=== PATIENT | male | born 1995 | race Two or more races ===

== ENCOUNTER 2022-02-09 00:52 | Inpatient (IN) | payer OTHER, SELFPAY ==
--- NOTE | 2022-02-09 00:59 | ED.PSYCH ---
HPI - Psych General Chief Complaint: Psychiatric Symptoms Stated Complaint: crisis Time Seen by Provider: 02/09/22 00:59 Source: patient Mode of arrival: EMS Limitations: no limitations History of Present Illness HPI Narrative: Patient came by ambulance sent by [facility] on [address] for disorganized thought process and visual hallucination patient is common quite denies any suicidal ideation no substance abuse Related Data Allergies Allergy/AdvReac Type Severity Reaction Status Date / Time No Known Allergies Allergy Verified 02/09/22 01:08 Review of Systems Review of Systems: Yes all other systems are reviewed and are negative [facility] Social History Social History Advance Directives: No Advance Directives Information Provided: No Physical Exam Vital Signs: Vital Signs: Last Vital Signs Temp 98.1 F 02/09/22 01:01 Pulse 51 02/09/22 01:01 Resp 18 02/09/22 01:01 BP 129/92 H 02/09/22 01:01 Pulse Ox 98 02/09/22 01:01 O2 Del Method 02/09/22 01:01 BMI result Body Mass Index 18.6 Appearance: Alert. Oriented X3. No acute distress. Calm and cooperative Eyes: PERRLA, No Nystagmus ENT: Pharynx normal. Oral Mucosa moist Neck: Normal inspection. Neck supple. CVS: Normal heart rate and rhythm. Pulses normal. Respiratory: No respiratory distress. Equal air entry bilateral, no wheezing/rales/rhonchi Abdomen: Soft and nontender. Bowel sounds are present, no mass palpable, no CVA tenderness Skin: Skin warm and dry. Normal skin color. Normal skin turgor. Extremities: No lower extremity edema. No calf tenderness psych: Calm cooperative denies any delusions hallucinations no suicidal ideation Neuro: Oriented X 3. No motor deficit. No sensory deficit.No cerebellar signs , cranial nerves II-XII intact MDM - Psych MDM Narrative Medical decision making narrative: Patient with disorganized thoughts possible schizoaffective disorder planned to get admitted for further evaluation treatment Differential Diagnosis Differential diagnosis: Likely schizoaffective disorder Lab Data Attestation: I reviewed the patient's lab results. Result diagrams: 02/09/22 01:39 02/09/22 01:39 Labs: Lab Results 02/09/22 02/09/22 02/09/22 Range/Units 01:14 01:14 01:39 WBC 6.3 (4.8-10.8) X10*3/uL RBC 5.31 (4.60-5.80) X10*6/uL Hgb 15.7 (14.0-18.0) g/dl Hct 47.1 (42.0-52.0) % MCV 88.7 (80.0-98.0) fL MCH 29.6 (27.0-33.0) pg MCHC 33.3 (31.0-36.0) g/dl RDW 12.5 (11.0-16.0) % Plt Count 211 (160-400) X10*3/uL MPV 10.7 (9.4-12.4) fL Immature Gran % (Auto) 0.2 (0.0-0.4) % Neut % (Auto) 51.6 (45-73) % Lymph % (Auto) 33.0 (20-40) % [place] % (Auto) 9.9 (2-11) % Eos % (Auto) 5.0 H (0-4) % Baso % (Auto) 0.3 (0-2) % Lymph # (Auto) 2.1 (1.2-4.9) X10*3/uL [place] # (Auto) 0.6 (0.1-1.2) X10*3/uL Eos # (Auto) 0.3 (0.0-0.4) X10*3/uL Baso # (Auto) 0.0 (0.0-0.2) X10*3/uL Abs Immat Gran (auto) 0.01 (0.00-0.03) X10*3/uL Absolute Neuts (auto) 3.2 (2.0-8.3) x10*3/uL Absolute Nucleated RBC 0.000 (0.0-0.012) X10*3/uL Nucleated RBC % (auto) 0.0 (0.0-0.2) /100WBC Sodium (135-145) mmol/L Potassium (3.3-5.1) mmol/L Chloride (96-108) mmol/L Carbon Dioxide (22-29) mmol/L Anion Gap (12-20) BUN (9-16) mg/dL Creatinine (0.5-1.4) mg/dL Estim Creat Clear Calc Estimated GFR Random Glucose (60-115) mg/dL Calcium (8.4-10.2) mg/dL Salicylates (15-30) mg/dL Urine Opiates Screen Not Detected (Not Detect) Urine Fentanyl Screen Not Detected (Not Detect) Acetaminophen (<30) mcg/mL Ur Barbiturates Screen Not Detected (Not Detect) Ur Phencyclidine Scrn Not Detected (Not Detect) Ur Amphetamines Screen Not Detected (Not Detect) U Benzodiazepines Scrn Not Detected (Not Detect) Urine Cocaine Screen Not Detected (Not Detect) U Marijuana (THC) Screen POSITIVE H (Not Detect) Ethyl Alcohol mg/dL COVID-19 (JOHNNY) Negative (Negative) COVID-19 Clin Com See Note 02/09/22 02/09/22 Range/Units 01:39 01:39 WBC (4.8-10.8) X10*3/uL RBC (4.60-5.80) X10*6/uL Hgb (14.0-18.0) g/dl Hct (42.0-52.0) % MCV (80.0-98.0) fL MCH (27.0-33.0) pg MCHC (31.0-36.0) g/dl RDW (11.0-16.0) % Plt Count (160-400) X10*3/uL MPV (9.4-12.4) fL Immature Gran % (Auto) (0.0-0.4) % Neut % (Auto) (45-73) % Lymph % (Auto) (20-40) % [place] % (Auto) (2-11) % Eos % (Auto) (0-4) % Baso % (Auto) (0-2) % Lymph # (Auto) (1.2-4.9) X10*3/uL [place] # (Auto) (0.1-1.2) X10*3/uL Eos # (Auto) (0.0-0.4) X10*3/uL Baso # (Auto) (0.0-0.2) X10*3/uL Abs Immat Gran (auto) (0.00-0.03) X10*3/uL Absolute Neuts (auto) (2.0-8.3) x10*3/uL Absolute Nucleated RBC (0.0-0.012) X10*3/uL Nucleated RBC % (auto) (0.0-0.2) /100WBC Sodium 141 (135-145) mmol/L Potassium 4.0 (3.3-5.1) mmol/L Chloride 102 (96-108) mmol/L Carbon Dioxide 29 (22-29) mmol/L Anion Gap 14 (12-20) BUN 29 H (9-16) mg/dL Creatinine 1.15 (0.5-1.4) mg/dL Estim Creat Clear Calc 79.3 Estimated GFR > 60 Random Glucose 96 (60-115) mg/dL Calcium 9.6 (8.4-10.2) mg/dL Salicylates < 5.0 L (15-30) mg/dL Urine Opiates Screen (Not Detect) Urine Fentanyl Screen (Not Detect) Acetaminophen < 1 (<30) mcg/mL Ur Barbiturates Screen (Not Detect) Ur Phencyclidine Scrn (Not Detect) Ur Amphetamines Screen (Not Detect) U Benzodiazepines Scrn (Not Detect) Urine Cocaine Screen (Not Detect) U Marijuana (THC) Screen (Not Detect) Ethyl Alcohol < 10 mg/dL COVID-19 (JOHNNY) (Negative) COVID-19 Clin Com Discharge Plan Discharge Clinical Impression: Acute psychosis, Acute anxiety Patient Disposition: Still a Patient
[2022-02-09 01:01] VITALS: BP 129/92; PULSE 51; RESP 18; TEMP 36.7; O2SAT 98; BMI 18.6
[2022-02-09] MEDS: LORazepam 1 MG TABLET 2 MG PO (01:36)
[2022-02-09 01:39] LABS: COVID-19 Test Negative (Negative); IDNOW Serial# 9DB6401D
[2022-02-09 01:41] LABS: Amphetamine Screen Urine Not Detected (Not Detect); Barbiturates, Urine Not Detected (Not Detect); Benzodiazepines Screen Urine Not Detected (Not Detect); Cannabinoid Screen Urine POSITIVE (Not Detect); Cocaine Screen Urine Not Detected (Not Detect); Fentanyl, urine Not Detected (Not Detect); Opiate Screen Urine Not Detected (Not Detect); Phencyclidine Screen Urine Not Detected (Not Detect)
[2022-02-09 01:43] LABS: MANUAL DIFF FLAG NO
[2022-02-09 01:50] LABS: Basophils Percent Auto 0.3 % (0-2); Eosinophils Absolute Auto 0.3 X10*3/uL (0.0-0.4); Hematocrit 47.1 % (42.0-52.0); Hemoglobin 15.7 g/dl (14.0-18.0); Imm Gran Abs Auto 0.01 X10*3/uL (0.00-0.03); Imm Gran Pct Auto 0.2 % (0.0-0.4); Lymphocytes Absolute Auto 2.1 X10*3/uL (1.2-4.9); Mean Corpuscular HGB Conc 33.3 g/dl (31.0-36.0); Mean Corpuscular Hemoglobin 29.6 pg (27.0-33.0); Mean Corpuscular Volume 88.7 fL (80.0-98.0); Mean Platelet Volume 10.7 fL (9.4-12.4); Monocytes Absolute Auto 0.6 X10*3/uL (0.1-1.2); Monocytes Percent Auto 9.9 % (2-11); Neutrophils Absolute Auto 3.2 x10*3/uL (2.0-8.3); Neutrophils Percent Auto 51.6 % (45-73); Platelet Count 211 X10*3/uL (160-400); Red Blood Count 5.31 X10*6/uL (4.60-5.80); Red Cell Distribution Width 12.5 % (11.0-16.0); White Blood Count 6.3 X10*3/uL (4.8-10.8)
[2022-02-09 02:00] LABS: Ethanol < 10 mg/dL
[2022-02-09 02:04] LABS: Acetaminophen LAB < 1 mcg/mL (<30); Anion Gap 14 (12-20); Blood Urea Nitrogen 29 mg/dL (9-16); Calcium 9.6 mg/dL (8.4-10.2); Carbon Dioxide 29 mmol/L (22-29); Chloride 102 mmol/L (96-108); Creatinine Clr Calc Pharmacy 79.3; Estimated Glomerular Filt Rate > 60; Glucose Random 96 mg/dL (60-115); Salicylate < 5.0 mg/dL (15-30); Sodium 141 mmol/L (135-145)
--- NOTE | 2022-02-09 06:35 | PC.NURSE ---
Patient slept through the night, no distress observed/reported, administered Ativan 2 mg PO at 0136 as ordered with + effect, disposition per [facility] is section 12 inpatient bed search, patient is currently not on any medication at this time, behavior suitable and non concerning, will continue to monitor.
[2022-02-09 08:02] VITALS: BP 113/54; PULSE 53; RESP 20; TEMP 36.3; O2SAT 98
--- NOTE | 2022-02-09 14:54 | PC.NURSE ---
PT CALM AND COOPERATIVE THROUGHOUT DAY.
[2022-02-09 17:33] VITALS: BP 130/85; PULSE 64; TEMP 36.2; O2SAT 99
--- NOTE | 2022-02-09 18:00 | PC.NURSE ---
pt resting in bed at start of shift @1500, pt given tyrel sean, pt asked to use a puzzle in the activity room. calm and cooperative. no behaviors noted on this RNs time.
[2022-02-09 18:30] VITALS: BP 135/94; PULSE 65; RESP 17; TEMP 36.9; O2SAT 100
--- NOTE | 2022-02-09 19:13 | PC.ADMIT ---
Patient arrived at at 1825 with a legal status of CV. Patient was pleasant and cooperative with the admission assessment. Patient presents with disorganized thinking. When asked if he could tell TW about what brought him in, the patient stated ?I think differently than most people. I have what some people may view as crazy thinking. For example you and I are both in this room and I see 3 stools and 2 chairs but that may not be what you see?. When asked if he could elaborate further, the patient did not respond and began to stare at the ground for some time. Throughout the interview eye contact is poor. Speech is within normal limits. Patient asked What are some goals for discharge, the patient stated ? I want to get my focus refocused. I want to have clear thinking but not robot thinking. I want to get my mind right for what's normal for me . At times seems religiously preoccupied and making references to ?the god above me?. ?Only god above all else I should be doing better?. Patient reports that he is currently homeless. Reported that he has lost more than 40 pounds ?because of a lot of things including my financial situation?. Reported sleep has been poor ?it has been a doozy of a wekke let me tell you?. Patient is currently denying SI/HI/AH/VH. Patient asked if he was currently experiencing any anxiety or depression. The patient replied ?what is depression, sure I should be doing better but the god above should have me on better actions?. Patient denies physical complaints at this time. 15 minute safety checks initiated.
--- NOTE | 2022-02-09 20:48 | ECG_ITS ---
Test Reason : MED CLEARANCE Blood Pressure : / mmHG Vent. Rate : 060 BPM Atrial Rate : 060 BPM P-R Int : 110 ms QRS Dur : 096 ms QT Int : 424 ms P-R-T Axes : 072 076 046 degrees QTc Int : 424 ms Sinus rhythm with short NV Otherwise normal ECG No previous ECGs available Referred By: Trina Hinton Electronically Signed By:ANNAMARIE HOBBS
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
[2022-02-10 08:30] VITALS: BP 119/81; PULSE 59; RESP 16; TEMP 36.8; O2SAT 100
[2022-02-10 09:11] LABS: Estimated Average Glucose 103 mg/dL; Hemoglobin A1c % 5.2 %
[2022-02-10 09:24] LABS: Cholesterol 147 mg/dL; HDL Cholesterol 41 mg/dL; LDL Cholesterol Calculated 99 mg/dl; Triglycerides 36 mg/dL
[2022-02-10 09:44] LABS: Free T4 (Free Thyroxine) 1.06 ng/dL (0.71-1.85); Thyroid Stimulating Hormone 1.25 uIU/mL (0.32-4.0)
[2022-02-10 10:54] LABS: Folate 10.5 ng/mL (> or = 4.0); Vitamin B12 364 pg/mL (200-900)
[2022-02-10 14:09] VITALS: BMI 18.6
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
[2022-02-10 20:19] VITALS: BP 135/71; PULSE 75; RESP 18; TEMP 36.7; O2SAT 99
[2022-02-10] MEDS: OLANZapine 10 MG TABLET PO (21:25)
[2022-02-11 08:24] VITALS: BP 126/74; PULSE 80; RESP 16; TEMP 37.1; O2SAT 99
--- NOTE | 2022-02-11 14:00 | P.PNPSI_ITS ---
Subjective Subjective Date of Service: 02/11/22 Reason For Visit: disorganized thoughs, VH Interim History: calm, cooperative. expresses frustration with particular peer whom he feels desecrated the sacred space of meditation. seems a bit paranoid and a little disorganized, distrustful of staff as well as peers. he has no complaints about the medication, denies it makes him feel like a zombie, but rather states he slept extremely well last night after having taken the medication. per staff, apprehensive, tearful. racing thoughts, homeless. guarded. slept well. appeared to be RIS at times, but denied. Mental Status Exam Mental Status Exam Narrative: A&O. In street clothes, adequate grooming. Good eye contact, attentive. No Tics or Tremors. No abnormal involuntary movements. Calm, guarded. Non-pressured speech, quiet, talkative. No prolonged speech latency or dysarthria. affect is constricted with some lability - tearfulness. no SI/HI/AVH expressed. Thoughts are loose. No known cognitive or memory impairment. Insight/ Judgment poor. Diagnostics Vital Signs (24Hr): Vital Signs - 24 hr 02/10/22 20:19 02/11/22 08:24 Temperature 98.1 F 98.7 F Pulse Rate 75 80 Respiratory Rate 18 16 Blood Pressure 135/71 126/74 Pulse Oximetry 99 99 Oxygen Delivery Method Room Air BMI result Body Mass Index 18.6 Labs Results: 02/09/22 01:39 02/09/22 01:39 Labs: Laboratory Results - last 48 hr 02/10/22 02/10/22 02/10/22 08:16 08:16 08:16 Estimat Average Glucose 103 Hemoglobin A1c % 5.2 Magnesium 2.0 Triglycerides 36 Cholesterol 147 LDL Cholesterol, Calc 99 HDL Cholesterol 41 Vitamin B12 364 Folate 10.5 TSH 1.25 Free T4 1.06 Medications Medications Current Medications Acetaminophen (Acetaminophen 325 Mg Tablet) 650 mg PO Q6H PRN PRN Reason: Headache/Pain Mild Scale (1-3) Al Hydroxide/Mg Hydroxide (Magnesium Hydrox/Alum Hydrox 30 Ml Oral.Susp) 30 ml PO Q6H PRN PRN Reason: Heartburn/Nausea Hydroxyzine HCl (Hydroxyzine Hcl 25 Mg Tablet) 25 mg PO Q6H PRN PRN Reason: Anxiety Magnesium Hydroxide (Milk Of Magnesia 30 Ml Oral.Susp) 30 ml PO DAILY PRN PRN Reason: Constipation Melatonin (Melatonin 3 Mg Tablet) 3 mg PO BEDTIME PRN PRN Reason: insomnia Olanzapine (Olanzapine 10 Mg Tablet) 10 mg PO BEDTIME [facility] Last Admin: 02/10/22 21:25 Dose: 10 mg Trazodone HCl (Trazodone Hcl 50 Mg Tablet) 50 mg PO BEDTIME PRN PRN Reason: Insomnia Allergies Allergies Allergy/AdvReac Type Severity Reaction Status Date / Time No Known Allergies Allergy Verified 02/09/22 01:08 Assessment & Plan Assessment & Plan (1) Unspecified psychosis: Status: Acute Code(s): F29 - Unspecified psychosis not due to a substance or known physiological condition Plan Brian is a 26 y.o. Male who carries a dx of unspecified psychotic disorder. He self presented to [facility] on [address] with his cousin due to increased anxiety and depression, bizarre behaviors, paranoia. Pt has been endorsing paranoid and lutheran delusions. No past psych hx as an adult, remote hx of treatment for ADHD in childhood. Substance use positive for cannabis only, denies alcohol abuse. Family hx of schizophrenia. Plan: 02/09: Pt says ?I dont believe? in meds, I dont like to use pills.? Asks for chamomile tea, also accepting of PRN Melatonin. Consider head CT, as pt has un known psych hx and is presenting with psychotic sx, denies any hx of trauma to his head. 02/10: discloses paranoid delusions. agrees to zyprexa at . reports polytrauma of the head. 02/11: paranoid. slept very well after zyprexa 10 last night, no complaints. continue current mgmt. I spent ___25___ minutes with the patient and/or on the patient floor today, greater than?50% of which was spent counseling/coordinating care. Reason for contiued inpatient stay Substantial Risk for: inability to function and rapid decompensation
[2022-02-11 21:01] VITALS: BP 117/76; PULSE 76; RESP 16; TEMP 36.6; O2SAT 98
[2022-02-11] MEDS: OLANZapine 10 MG TABLET PO (22:31)
[2022-02-12 06:00] VITALS: BP 127/72; PULSE 79; RESP 18; TEMP 36.7; O2SAT 100
[2022-02-12 07:00] VITALS: BMI 20.2
--- NOTE | 2022-02-12 16:32 | HO.PSYCHPN ---
Subjective Subjective Date of Service: 02/12/22 Reason For Visit: disorganized thoughs, VH Interim History: calm, cooperative. reports he is sleeping well and ate very well today. remains delusional, but perhaps less so than previously. states he is struggling with his emotions and having a hard time using coping mechanisms. reports he is feeling more safe since starting zyprexa. declines to increase zyprexa dose right now. AH have decreased. c/o constipation, metamucil started. per staff, no issues. c/o constipation. +AH, delusional. too afraid to eat. slept well. Mental Status Exam Mental Status Exam Narrative: A&O. In street clothes, adequate grooming. Good eye contact, attentive. No Tics or Tremors. No abnormal involuntary movements. Calm, less guarded. Non-pressured speech, quiet, talkative. No prolonged speech latency or dysarthria. affect is more flexible and non-labile. no SI/HI/VH expressed. reports AH, but improved from prior. Thoughts are more organized and linear. No known cognitive or memory impairment. Insight/ Judgment poor. Diagnostics Vital Signs (24Hr): Vital Signs - 24 hr 02/11/22 21:01 02/12/22 06:00 Temperature 97.8 F 98.1 F Pulse Rate 76 79 Respiratory Rate 16 18 Blood Pressure 117/76 127/72 Pulse Oximetry 98 100 Oxygen Delivery Method Room Air Room Air BMI result Body Mass Index 20.2 Labs Results: 02/09/22 01:39 02/09/22 01:39 Medications Medications Current Medications Acetaminophen (Acetaminophen 325 Mg Tablet) 650 mg PO Q6H PRN PRN Reason: Headache/Pain Mild Scale (1-3) Al Hydroxide/Mg Hydroxide (Magnesium Hydrox/Alum Hydrox 30 Ml Oral.Susp) 30 ml PO Q6H PRN PRN Reason: Heartburn/Nausea Hydroxyzine HCl (Hydroxyzine Hcl 25 Mg Tablet) 25 mg PO Q6H PRN PRN Reason: Anxiety Magnesium Hydroxide (Milk Of Magnesia 30 Ml Oral.Susp) 30 ml PO DAILY PRN PRN Reason: Constipation Melatonin (Melatonin 3 Mg Tablet) 3 mg PO BEDTIME PRN PRN Reason: insomnia Olanzapine (Olanzapine 10 Mg Tablet) 10 mg PO BEDTIME [facility] Last Admin: 02/11/22 22:31 Dose: 10 mg Psyllium Hydrophilic Mucilloid (Psyllium Seed 3.4 Gm Powd.Pack) 3.4 gm PO DAILY [facility] Last Admin: 02/12/22 13:41 Dose: 3.4 gm Trazodone HCl (Trazodone Hcl 50 Mg Tablet) 50 mg PO BEDTIME PRN PRN Reason: Insomnia Allergies Allergies Allergy/AdvReac Type Severity Reaction Status Date / Time No Known Allergies Allergy Verified 02/09/22 01:08 Assessment & Plan Assessment & Plan (1) Unspecified psychosis: Status: Acute Code(s): F29 - Unspecified psychosis not due to a substance or known physiological condition Plan Brian is a 26 y.o. Male who carries a dx of unspecified psychotic disorder. He self presented to [facility] on [address] with his cousin due to increased anxiety and depression, bizarre behaviors, paranoia. Pt has been endorsing paranoid and episcopal delusions. No past psych hx as an adult, remote hx of treatment for ADHD in childhood. Substance use positive for cannabis only, denies alcohol abuse. Family hx of schizophrenia. Plan: 02/09: Pt says ?I dont believe? in meds, I dont like to use pills.? Asks for chamomile tea, also accepting of PRN Melatonin. Consider head CT, as pt has unknown psych hx and is presenting with psychotic sx, denies any hx of trauma to his head. 02/10: discloses paranoid delusions. agrees to zyprexa at HS. reports polytrauma of the head. 02/11: paranoid. slept very well after zyprexa 10 last night, no complaints. continue current mgmt. 02/12: psychosis showing mild improvement. declines to increase zyprea to 15 mg at HS. I spent ___25___ minutes with the patient and/or on the patient floor today, greater than?50% of which was spent counseling/coordinating care. Reason for contiued inpatient stay Substantial Risk for: inability to function and rapid decompensation
--- NOTE | 2022-02-12 18:34 | PC.NURSE ---
Pt came to this nurse at 18:30 requesting night meds early. states I just want to end this day when told night meds can be given at 8pm at the earliest but I could give him a hydroxyzine pt shook his head no and walk away not engaging. went to room
[2022-02-12 20:45] VITALS: BP 150/89; PULSE 90; RESP 16; TEMP 36.7; O2SAT 98
[2022-02-12] MEDS: OLANZapine 10 MG TABLET PO (22:22)
[2022-02-13 10:20] VITALS: BP 109/65; PULSE 65; RESP 16; TEMP 36.6; O2SAT 98
--- NOTE | 2022-02-13 16:34 | P.PNPSI_ITS ---
Subjective Subjective Date of Service: 02/13/22 Reason For Visit: disorganized thoughs, VH Subjective Notes: [place] Warning and Conditional Voluntary Healthcare Proxy: No Guardianship: No Medical Problems Affecting Mental Status: No Interim History: Patient seen and discussed with team. Patient evaluated today and upon interview pt reports medication feels like a bandaid has been slapped on. Says he is having episodes of feeling rage in my mind that feels like screaming in my ear. Attributes this to past trauma and says he feels triggered in those moments. In the milieu, patient is isolative but appropriate in behavior. Denies SI/SIB/HI upon inquiry. Denies irritability or assaultive ideation. Says he feels safe. Medication Compliance: Yes Side effects from medications: No Attending Groups: Intermittent Review of Systems Acute medical concerns: No Medical Review of Systems: unchanged Mental Status Exam Mental Status Exam Narrative: A&O except to situation. In hospital attire, okay grooming. Good eye contact, attentive. No Tics or Tremors. No abnormal involuntary movements. Calm, guarded, suspicious. Non-pressured speech, quiet and not talkative. No prolonged speech latency or dysarthria. Mood is ?okay, affect is constricted. Denies SI/SIB/HI upon inquiry. Denies A/VH. Endorses paranoid delusional thought content. Thoug hts are somewhat disorganized, confused. No known cognitive or memory impairment. Insight/ Judgment poor. Diagnostics Vital Signs (24Hr): Vital Signs - 24 hr 02/12/22 20:45 02/13/22 10:20 Temperature 98.1 F 97.8 F Pulse Rate 90 65 Respiratory Rate 16 16 Blood Pressure 150/89 H 109/65 Pulse Oximetry 98 98 Oxygen Delivery Method Room Air Room Air BMI result Body Mass Index 20.2 Labs Results: 02/09/22 01:39 02/09/22 01:39 Medications Medications Current Medications Acetaminophen (Acetaminophen 325 Mg Tablet) 650 mg PO Q6H PRN PRN Reason: Headache/Pain Mild Scale (1-3) Al Hydroxide/Mg Hydroxide (Magnesium Hydrox/Alum Hydrox 30 Ml Oral.Susp) 30 ml PO Q6H PRN PRN Reason: Heartburn/Nausea Hydroxyzine HCl (Hydroxyzine Hcl 25 Mg Tablet) 25 mg PO Q6H PRN PRN Reason: Anxiety Magnesium Hydroxide (Milk Of Magnesia 30 Ml Oral.Susp) 30 ml PO DAILY PRN PRN Reason: Constipation Melatonin (Melatonin 3 Mg Tablet) 3 mg PO BEDTIME PRN PRN Reason: insomnia Olanzapine (Olanzapine 10 Mg Tablet) 10 mg PO BEDTIME [facility] Last Admin: 02/12/22 22:22 Dose: 10 mg Psyllium Hydrophilic Mucilloid (Psyllium Seed 3.4 Gm Powd.Pack) 3.4 gm PO DAILY [facility] Last Admin: 02/13/22 10:19 Dose: 3.4 gm Trazodone HCl (Trazodone Hcl 50 Mg Tablet) 50 mg PO BEDTIME PRN PRN Reason: Insomnia Allergies Allergies Allergy/AdvReac Type Severity Reaction Status Date / Time No Known Allergies Allergy Verified 02/09/22 01:08 Assessment & Plan Assessment & Plan (1) Unspecified psychosis: Status: Acute Code(s): F29 - Unspecified psychosis not due to a substance or known physiological condition Plan Brian is a 26 y.o. Male who carries a dx of unspecified psychotic disorder. He self presented to [facility] on [facility] with his cousin due to increased anxiety and depression, bizarre behaviors, paranoia. Pt has been endorsing paranoid and mu-ism delusions. No past psych hx as an adult, remote hx of treatment for ADHD in childhood. Substance use positive for cannabis only, denies alcohol abuse. Family hx of schizophrenia. Plan: 02/09: Pt says ?I dont believe? in meds, I dont like to use pills.? Asks for chamomile tea, also accepting of PRN Melatonin. Consider head CT, as pt has unknown psych hx and is presenting with psychotic sx, denies any hx of trauma to his head. 02/10: discloses paranoid delusions. agrees to zyprexa at HS. reports polytrauma of the head. 02/11: paranoid. slept very well after zyprexa 10 last night, no complaints. continue current mgmt. 02/12: psychosis showing mild improvement. declines to increase zyprea to 15 mg at HS. 02/13: Pt agreeable to trial of clonidine 0.1 mg TID PRN for hyperarousal, agitation, anxiety. He continues to decline increase in zyprexa. I spent minutes with the patient and/or on the patient floor today, greater than?50% of which was spent counseling/coordinating care. Patient educated on: medication risk/benefits Reason for contiued inpatient stay Substantial Risk for: med/psych decompensation
[2022-02-13 20:38] VITALS: BP 129/62; PULSE 90; RESP 16; TEMP 36.2; O2SAT 97
[2022-02-13] MEDS: OLANZapine 10 MG TABLET PO (21:54)
[2022-02-14 08:52] VITALS: BP 135/78; PULSE 93; RESP 16; TEMP 36.3; O2SAT 93
[2022-02-14 15:02] LABS: CT PCR NOT DETECTED (Not Detect.); NG PCR NOT DETECTED (Not Detect.)
[2022-02-14] MEDS: OLANZapine 10 MG TABLET PO (20:11)
[2022-02-14 20:13] VITALS: BP 119/83; PULSE 101; RESP 16; TEMP 36.7; O2SAT 98
--- NOTE | 2022-02-14 21:51 | HO.PSYCHPN ---
Subjective Subjective Date of Service: 02/14/22 Reason For Visit: disorganized thoughs, VH Subjective Notes: [place] Warning Interim History: Patient seen and discussed with team. Patient evaluated today and upon interview pt reports today has been upbeat, says he did hear a voice was echoing in my brain for some of the morning, but says music helped. Didnt try clonidine PRN yet for agitation/ hyerparousal. In the milieu, patient is safe, somewhat bizarre in statements he makes. Says he feels safe. Medication Compliance: Yes Side effects from medications: No Attending Groups: Intermittent Review of Systems Acute medical concerns: No Medical Review of Systems: unchanged Mental Status Exam Mental Status Exam Narrative: A&O except to situation. In hospital attire, okay grooming. Good eye contact, attentive. No Tics or Tremors. No abnormal involuntary movements. Calm, guarded, suspicious. Non-pressured speech, quiet and not talkative. No prolonged speech latency or dysarthria. Mood is ?good, affect is calm. Denies SI/SIB/HI upon inquiry. Denies A/VH. Has esoteric/ bizarre delusional thought content. Thoughts are more goal oriented. No known cognitive or memory impairment. Insight/ Judgment limited. Diagnostics Vital Signs (24Hr): Vital Signs - 24 hr 02/14/22 20:13 02/15/22 08:26 Temperature 98.1 F 97.6 F Pulse Rate 101 H 86 Respiratory Rate 16 16 Blood Pressure 119/83 135/85 Pulse Oximetry 98 99 Oxygen Delivery Method Room Air Room Air BMI result Body Mass Index 20.2 Labs Results: 02/09/22 01:39 02/09/22 01:39 Labs: Laboratory Results - last 48 hr 02/14/22 12:15 Chlam trachomat DNA PCR NOT DETECTED N.gonorrhoeae DNA (PCR) NOT DETECTED Medications Medications Current Medications Acetaminophen (Acetaminophen 325 Mg Tablet) 650 mg PO Q6H PRN PRN Reason: Headache/Pain Mild Scale (1-3) Al Hydroxide/Mg Hydroxide (Magnesium Hydrox/Alum Hydrox 30 Ml Oral.Susp) 30 ml PO Q6H PRN PRN Reason: Heartburn/Nausea Clonidine HCl (Clonidine Hcl 0.1 Mg Tablet) 0.1 mg PO TID PRN; Protocol PRN Reason: hyperarousal, anxiety Hydroxyzine HCl (Hydroxyzine Hcl 25 Mg Tablet) 25 mg PO Q6H PRN PRN Reason: Anxiety Magnesium Hydroxide (Milk Of Magnesia 30 Ml Oral.Susp) 30 ml PO DAILY PRN PRN Reason: Constipation Melatonin (Melatonin 3 Mg Tablet) 3 mg PO BEDTIME PRN PRN Reason: insomnia Olanzapine (Olanzapine 10 Mg Tablet) 10 mg PO BEDTIME [facility] Last Admin: 02/14/22 20:11 Dose: 10 mg Psyllium Hydrophilic Mucilloid (Psyllium Seed 3.4 Gm Powd.Pack) 3.4 gm PO DAILY [facility] Last Admin: 02/15/22 08:31 Dose: 3.4 gm Trazodone HCl (Trazodone Hcl 50 Mg Tablet) 50 mg PO BEDTIME PRN PRN Reason: Insomnia Allergies Allergies Allergy/AdvReac Type Severity Reaction Status Date / Time No Known Allergies Allergy Verified 02/09/22 01:08 Assessment & Plan Assessment & Plan (1) Unspecified psychosis: Status: Acute Code(s): F29 - Unspecified psychosis not due to a substance or known physiological condition Plan Brian is a 26 y.o. Male who carries a dx of unspecified psychotic disorder. He self presented to [facility] with his cousin due to increased anxiety and depression, bizarre behaviors, paranoia. Pt has been endorsing paranoid and religion delusions. No past psych hx as an adult, remote hx of treatment for ADHD in childhood. Substance use positive for cannabis only, denies alcohol abuse. Family hx of schizophrenia. Plan: 02/09: Pt says ?I dont believe? in meds, I dont like to use pills.? Asks for chamomile tea, also accepting of PRN Melatonin. Consider head CT, as pt has unknown psych hx and is presenting with psychotic sx, denies any hx of trauma to his head. 02/10: discloses paranoid delusions. agrees to zyprexa at HS. reports polytrauma of the head. 02/11: paranoid. slept very well after zyprexa 10 last night, no complaints. continue current mgmt. 02/12: psychosis showing mild improvement. declines to increase zyprea to 15 mg at HS. 02/13: Pt agreeable to trial of clonidine 0.1 mg TID PRN for hyperarousal, agitation, anxiety. He continues to decline increase in zyprexa. 02/14: No med changes, pt is safe, sleeping I spent minutes with the patient and/or on the patient floor today, greater than?50% of which was spent counseling/coordinating care. Patient educated on: medication risk/benefits Reason for contiued inpatient stay Substantial Risk for: inability to function, rapid decompensation and med/psych decompensation
[2022-02-15 08:26] VITALS: BP 135/85; PULSE 86; RESP 16; TEMP 36.4; O2SAT 99
--- NOTE | 2022-02-15 11:51 | HO.PSYCHPN ---
Subjective Subjective Date of Service: 02/15/22 Reason For Visit: disorganized thoughs, VH Subjective Notes: [place] Warning Interim History: Patient seen and discussed with team. Patient evaluated today and upon interview pt says im good. He trialed PRN clonidine and vistaril due to agitation, says the clonidine put me to sleep and this vistaril helped with anxiety, Im mellowed out, its helping calm my emotions. Feels neutral. Had a good conversation with his mom. Denies AH. Says he had racing thoughts earlier and weird dreams. In the milieu, patient is safe, psychotic thought process present but no safety concerns and pt is more organized and engaged. Mental Status Exam Mental Status Exam Narrative: A&O except to situation. In hospital attire, okay grooming. Good eye contact, attentive. No Tics or Tremors. No abnormal involuntary movements. Calm, guarded, suspicious. Non-pressured speech, quiet and not talkative. No prolonged speech latency or dysarthria. Mood is ?good, affect is calm. Denies SI/SIB/HI upon inquiry. Denies A/VH. Has esoteric/ bizarre delusional thought content. Thoughts are more goal oriented. No known cognitive or memory impairment. Insight/ Judgment limited. Diagnostics Vital Signs (24Hr): Vital Signs - 24 hr 02/14/22 20:13 02/15/22 08:26 Temperature 98.1 F 97.6 F Pulse Rate 101 H 86 Respiratory Rate 16 16 Blood Pressure 119/83 135/85 Pulse Oximetry 98 99 Oxygen Delivery Method Room Air Room Air BMI result Body Mass Index 20.2 Labs Results: 02/09/22 01:39 02/09/22 01:39 Labs: Laboratory Results - last 48 hr 02/14/22 12:15 Chlam trachomat DNA PCR NOT DETECTED N.gonorrhoeae DNA (PCR) NOT DETECTED Medications Medications Current Medications Acetaminophen (Acetaminophen 325 Mg Tablet) 650 mg PO Q6H PRN PRN Reason: Headache/Pain Mild Scale (1-3) Al Hydroxide/Mg Hydroxide (Magnesium Hydrox/Alum Hydrox 30 Ml Oral.Susp) 30 ml PO Q6H PRN PRN Reason: Heartburn/Nausea Clonidine HCl (Clonidine Hcl 0.1 Mg Tablet) 0.1 mg PO TID PRN; Protocol PRN Reason: hyperarousal, anxiety Hydroxyzine HCl (Hydroxyzine Hcl 25 Mg Tablet) 25 mg PO Q6H PRN PRN Reason: Anxiety Magnesium Hydroxide (Milk Of Magnesia 30 Ml Oral.Susp) 30 ml PO DAILY PRN PRN Reason: Constipation Melatonin (Melatonin 3 Mg Tablet) 3 mg PO BEDTIME PRN PRN Reason: insomnia Olanzapine (Olanzapine 10 Mg Tablet) 10 mg PO BEDTIME [facility] Last Admin: 02/14/22 20:11 Dose: 10 mg Psyllium Hydrophilic Mucilloid (Psyllium Seed 3.4 Gm Powd.Pack) 3.4 gm PO DAILY [facility] Last Admin: 02/15/22 08:31 Dose: 3.4 gm Trazodone HCl (Trazodone Hcl 50 Mg Tablet) 50 mg PO BEDTIME PRN PRN Reason: Insomnia Allergies Allergies Allergy/AdvReac Type Severity Reaction Status Date / Time No Known Allergies Allergy Verified 02/09/22 01:08 Assessment & Plan Assessment & Plan (1) Unspecified psychosis: Status: Acute Code(s): F29 - Unspecified psychosis not due to a substance or known physiological condition Plan Brian is a 26 y.o. Male who carries a dx of unspecified psychotic disorder. He self presented to [facility] on [facility] with his cousin due to increased anxiety and depression, bizarre behaviors, paranoia. Pt has been endorsing paranoid and yarsani delusions. No past psych hx as an adult, remote hx of treatment for ADHD in childhood. Substance use positive for cannabis only, denies alcohol abuse. Family hx of schizophrenia. Plan: 02/09: Pt says ?I dont believe? in meds, I dont like to use pills.? Asks for chamomile tea, also accepting of PRN Melatonin. Consider head CT, as pt has unknown psych hx and is presenting with psychotic sx, denies any hx of trauma to his head. 02/10: discloses paranoid delusions. agrees to zyprexa at HS. reports polytrauma of the head. 02/11: paranoid. slept very well after zyprexa 10 last night, no complaints. continue current mgmt. 02/12: psychosis showing mild improvement. declines to increase zyprexa to 15 mg at HS. 02/13: Pt agreeable to trial of clonidine 0.1 mg TID PRN for hyperarousal, agitation, anxiety. He continues to decline increase in zyprexa. 02/14: No changes to plan, pt is paranoid, bizarre thought content but safe and refuses increase in zyprexa 02/15: pt trialed PRN clonidine for agitation, reports benefit I spent minutes with the patient and/or on the patient floor today, greater than?50% of which was spent counseling/coordinating care. Patient educated on: medication risk/benefits Reason for contiued inpatient stay Substantial Risk for: inability to function, rapid decompensation and med/psych decompensation
[2022-02-15] MEDS: cloNIDine HCL 0.1 MG TABLET PO (13:14)
[2022-02-15] MEDS: hydrOXYzine HCL 25 MG TABLET PO (16:30)
[2022-02-15] MEDS: OLANZapine 10 MG TABLET PO (23:06)
[2022-02-16 08:00] VITALS: BP 104/68; PULSE 62; RESP 16; TEMP 36.7; O2SAT 98
--- NOTE | 2022-02-16 16:11 | MHC.CLN ---
F/U SHOWING FAVORABLE WEIGHT GAIN SINCE ADMISSION. BMI=20.2. 86% IBW. CONTINUE REGULAR DIET WITH ENSURE BID.
[2022-02-16 20:15] VITALS: BP 117/88; PULSE 77; RESP 16; TEMP 36.1; O2SAT 99
[2022-02-16] MEDS: cloNIDine HCL 0.1 MG TABLET PO (20:17)
[2022-02-16] MEDS: OLANZapine 10 MG TABLET PO (20:17)
--- NOTE | 2022-02-16 22:42 | P.PNPSI_ITS ---
Subjective Subjective Date of Service: 02/16/22 Reason For Visit: disorganized thoughs, VH Interim History: Patient seen and discussed with team. Patient evaluated today and upon interview pt reports Today my day is going splendid, says he is learning to accept things i cant control, its definitely draining. Pt reports when he has his episodes, i.e. feels agitated, taking clonidine prn did the trick. Discussed scheduling clonidine due to reported benefit. In the milieu, patient is safe and visible. Denies SI/SIB/HI upon inquiry. Denies irritability or assaultive ideation. Says he feels safe. Medication Compliance: Yes Side effects from medications: No Attending Groups: Yes Review of Systems Acute medical concerns: No Medical Review of Systems: unchanged Mental Status Exam Mental Status Exam Narrative: A&O except to situation. In hospital attire, okay grooming. Good eye contact, attentive. No Tics or Tremors. No abnormal involuntary movements. Calm, guarded, suspicious. Non-pressured speech, quiet and not talkative. No prolonged speech latency or dysarthria. Mood is ?splendid, affect is calm. Denies SI/SIB/HI upon inquiry. Denies A/VH. Has esoteric/ bizarre delusional thought content. Thoughts are more goal oriented. No known cognitive or memory impairment. Insight/ Judgment limited. Diagnostics Vital Signs (24Hr): Vital Signs - 24 hr 02/16/22 20:15 Temperature 97.0 F Pulse Rate 77 Respiratory Rate 16 Blood Pressure 117/88 Pulse Oximetry 99 Oxygen Delivery Method Room Air BMI result Body Mass Index 20.2 Labs Results: 02/09/22 01:39 02/09/22 01:39 Labs: Laboratory Results - last 48 hr 02/14/22 11:13 HIV 1&2 Ab/P24 Ag 4thGn Nonreactive Medications Medications Current Medications Acetaminophen (Acetaminophen 325 Mg Tablet) 650 mg PO Q6H PRN PRN Reason: Headache/Pain Mild Scale (1-3) Al Hydroxide/Mg Hydroxide (Magnesium Hydrox/Alum Hydrox 30 Ml Oral.Susp) 30 ml PO Q6H PRN PRN Reason: Heartburn/Nausea Clonidine HCl (Clonidine Hcl 0.1 Mg Tablet) 0.1 mg PO BID [facility]; Protocol Last Admin: 02/17/22 08:32 Dose: 0.1 mg Clonidine HCl (Clonidine Hcl 0.1 Mg Tablet) 0.1 mg PO DAILY PRN; Protocol PRN Reason: anxiety Hydroxyzine HCl (Hydroxyzine Hcl 25 Mg Tablet) 25 mg PO Q6H PRN PRN Reason: Anxiety Last Admin: 02/15/22 16:30 Dose: 25 mg Magnesium Hydroxide (Milk Of Magnesia 30 Ml Oral.Susp) 30 ml PO DAILY PRN PRN Reason: Constipation Melatonin (Melatonin 3 Mg Tablet) 3 mg PO BEDTIME PRN PRN Reason: insomnia Olanzapine (Olanzapine 10 Mg Tablet) 10 mg PO BEDTIME [facility] Last Admin: 02/16/22 20:17 Dose: 10 mg Psyllium Hydrophilic Mucilloid (Psyllium Seed 3.4 Gm Powd.Pack) 3.4 gm PO DAILY [facility] Last Admin: 02/17/22 08:29 Dose: 3.4 gm Trazodone HCl (Trazodone Hcl 50 Mg Tablet) 50 mg PO BEDTIME PRN PRN Reason: Insomnia Allergies Allergies Allergy/AdvReac Type Severity Reaction Status Date / Time No Known Allergies Allergy Verified 02/09/22 01:08 Assessment & Plan Assessment & Plan (1) Unspecified psychosis: Status: Acute Code(s): F29 - Unspecified psychosis not due to a substance or known physiological condition Plan Brian is a 26 y.o. Male who carries a dx of unspecified psychotic disorder. He self presented to [facility] on [facility] with his cousin due to increased anxiety and depression, bizarre behaviors, paranoia. Pt has been endorsing paranoid and hoahaoism delusions. No past psych hx as an adult, remote hx of treatment for ADHD in childhood. Substance use positive for cannabis only, denies alcohol abuse. Family hx of schizophrenia. Plan: 02/09: Pt says ?I dont believe? in meds, I dont like to use pills.? Asks for chamomile tea, also accepting of PRN Melatonin. Consider head CT, as pt has unknown psych hx and is presenting with psychotic sx, denies any hx of trauma to his head. 02/10: discloses paranoid delusions. agrees to zyprexa at HS. reports polytrauma of the head. 02/11: paranoid. slept very well after zyprexa 10 last night, no complaints. continue current mgmt. 02/12: psychosis showing mild improvement. declines to increase zyprexa to 15 mg at HS. 02/13: Pt agreeable to trial of clonidine 0.1 mg TID PRN for hyperarousal, agitation, anxiety. He continues to decline increase in zyprexa. 02/14: No changes to plan, pt is paranoid, bizarre thought content but safe and refuses increase in zyprexa 02/15: pt trialed PRN clonidine for agitation, reports benefit 02/16: schedule clonidine 0.1 mg BID for agitation, anxiety, hyperarousal, inatte ntion due to reported benefit on PRN dose I spent minutes with the patient and/or on the patient floor today, greater than?50% of which was spent counseling/coordinating care. Patient educated on: medication risk/benefits Reason for contiued inpatient stay Substantial Risk for: med/psych decompensation
[2022-02-17 04:03] LABS: HIV AB/AG Nonreactive (Nonreactive)
[2022-02-17 08:30] VITALS: BP 153/67; PULSE 73; RESP 16; TEMP 37.1; O2SAT 98
[2022-02-17] MEDS: cloNIDine HCL 0.1 MG TABLET PO ×2 (08:32→21:09)
--- NOTE | 2022-02-17 13:44 | HO.PSYCHPN ---
Subjective Subjective Date of Service: 02/17/22 Reason For Visit: disorganized thoughs, VH Interim History: pt calm, cooperative, conversational. not as overtly psychotic as he had been previously. agreeable to increase zyprexa to 15 mg tonight. per staff, not attending groups consistently. c/o anxiety and racing thoughts. sleeping better at night, doing some napping during the day. Mental Status Exam Mental Status Exam Narrative: A&O. In street clothes, adequate grooming. Good eye contact, attentive. No Tics or Tremors. No abnormal involuntary movements. Calm, less guarded. Non-pressured speech. No prolonged speech latency or dysarthria. affect is more flexible and non-labile. no SI/HI/AVH expressed. Thoughts are organized and linear. No known cognitive or memory impairment. Insight/ Judgment improving. Diagnostics Vital Signs (24Hr): Vital Signs - 24 hr 02/16/22 20:15 02/17/22 08:30 Temperature 97.0 F 98.7 F Pulse Rate 77 73 Respiratory Rate 16 16 Blood Pressure 117/88 153/67 H Pulse Oximetry 99 98 Oxygen Delivery Method Room Air Room Air BMI result Body Mass Index 20.2 Labs Results: 02/09/22 01:39 02/09/22 01:39 Labs: Laboratory Results - last 48 hr 02/14/22 11:13 HIV 1&2 Ab/P24 Ag 4thGn Nonreactive Medications Medications Current Medications Acetaminophen (Acetaminophen 325 Mg Tablet) 650 mg PO Q6H PRN PRN Reason: Headache/Pain Mild Scale (1-3) Al Hydroxide/Mg Hydroxide (Magnesium Hydrox/Alum Hydrox 30 Ml Oral.Susp) 30 ml PO Q6H PRN PRN Reason: Heartburn/Nausea Clonidine HCl (Clonidine Hcl 0.1 Mg Tablet) 0.1 mg PO BID [facility]; Protocol Last Admin: 02/17/22 08:32 Dose: 0.1 mg Clonidine HCl (Clonidine Hcl 0.1 Mg Tablet) 0.1 mg PO DAILY PRN; Protocol PRN Reason: anxiety Hydroxyzine HCl (Hydroxyzine Hcl 25 Mg Tablet) 25 mg PO Q6H PRN PRN Reason: Anxiety Last Admin: 02/15/22 16:30 Dose: 25 mg Magnesium Hydroxide (Milk Of Magnesia 30 Ml Oral.Susp) 30 ml PO DAILY PRN PRN Reason: Constipation Melatonin (Melatonin 3 Mg Tablet) 3 mg PO BEDTIME PRN PRN Reason: insomnia Olanzapine (Olanzapine 7.5 Mg Tablet) 15 mg PO BEDTIME [facility] Psyllium Hydrophilic Mucilloid (Psyllium Seed 3.4 Gm Powd.Pack) 3.4 gm PO DAILY [facility] Last Admin: 02/17/22 08:29 Dose: 3.4 gm Trazodone HCl (Trazodone Hcl 50 Mg Tablet) 50 mg PO BEDTIME PRN PRN Reason: Insomnia Allergies Allergies Allergy/AdvReac Type Severity Reaction Status Date / Time No Known Allergies Allergy Verified 02/09/22 01:08 Assessment & Plan Assessment & Plan (1) Unspecified psychosis: Status: Acute Code(s): F29 - Unspecified psychosis not due to a substance or known physiological condition Plan Brian is a 26 y.o. Male who carries a dx of unspecified psychotic disorder. He self presented to [facility] on [facility] with his cousin due to increased anxiety and depression, bizarre behaviors, paranoia. Pt has been endorsing paranoid and anabaptist delusions. No past psych hx as an adult, remote hx of treatment for ADHD in childhood. Substance use positive for cannabis only, denies alcohol abuse. Family hx of schizophrenia. Plan: 02/09: Pt says ?I dont believe? in meds, I dont like to use pills.? Asks for chamomile tea, also accepting of PRN Melatonin. Consider head CT, as pt has unknown psych hx and is presenting with psychotic sx, denies any hx of trauma to his head. 02/10: discloses paranoid delusions. agrees to zyprexa at HS. reports polytrauma of the head. 02/11: paranoid. slept very well after zyprexa 10 last night, no complaints. continue current mgmt. 02/12: psychosis showing mild improvement. declines to increase zyprexa to 15 mg at HS. 02/13: Pt agreeable to trial of clonidine 0.1 mg TID PRN for hyperarousal, agitation, anxiety. He continues to decline increase in zyprexa. 02/14: No changes to plan, pt is paranoid, bizarre thought content but safe and refuses increase in zyprexa 02/15: pt trialed PRN clonidine for agitation, reports benefit 02/17: improving psychosis. increase zyprexa to 15 mg QHS. I spent __20____ minutes with the patient and/or on the patient floor today, greater than?50% of which was spent counseling/coordinating care. Reason for contiued inpatient stay Substantial Risk for: inability to function and rapid decompensation
[2022-02-17] MEDS: OLANZapine 7.5 MG TABLET 15 MG PO (21:09)
[2022-02-17 21:10] VITALS: BP 133/71; PULSE 91; RESP 16; TEMP 37; O2SAT 98
[2022-02-18 01:07] LABS: Herpes Simplex Type 1 IgG <0.90 index; Herpes Simplex Type 2 IgG 3.28 index
[2022-02-18 06:21] LABS: Syphilis Screen Nonreactive (Nonreactive)
[2022-02-18 08:38] VITALS: BP 144/81; PULSE 93; RESP 17; TEMP 36.4; O2SAT 100
[2022-02-18] MEDS: cloNIDine HCL 0.1 MG TABLET PO ×2 (08:39→20:32)
--- NOTE | 2022-02-18 16:16 | HO.PSYCHPN ---
Subjective Subjective Date of Service: 02/18/22 Reason For Visit: disorganized thoughs, VH Interim History: calm, cooperative. states he slept very well last night on the higher dose of zyprexa. asks if he will need to take the medication forever, and says that is likely the case. but he needs to plan to take it indefinitely. he asks if he will go crazy if he stops taking it. MD emphasizes the need for compliance. pt remains in the interview room after the interview, appearing to be struggling with the stigma of his diagnosis. per staff, tearful and paranoid. withdrawn. i'm crazy. i want to see how i am off of my meds. disorganized. cried in group. Mental Status Exam Mental Status Exam Narrative: A&O. In street clothes, adequate grooming. Good eye contact, attentive. No Tics or Tremors. No abnormal involuntary movements. Calm, less guarded. Non-pressured speech. No prolonged speech latency or dysarthria. affect is more flexible and non-labile. no SI/HI/AVH expressed. Thoughts are organized and linear. No known cognitive or memory impairment. Insight/ Judgment improving. Diagnostics Vital Signs (24Hr): Vital Signs - 24 hr 02/17/22 21:10 02/18/22 08:38 Temperature 98.6 F 97.6 F Pulse Rate 91 93 Respiratory Rate 16 17 Blood Pressure 133/71 144/81 H Pulse Oximetry 98 100 Oxygen Delivery Method Room Air Room Air BMI result Body Mass Index 20.2 Labs Results: 02/09/22 01:39 02/09/22 01:39 Labs: Laboratory Results - last 48 hr 02/14/22 02/14/22 02/14/22 11:13 11:13 11:13 T.pallidum Ab (EIA) Nonreactive HSV I IgG Ab <0.90 HSV II IgG 3.28 H HIV 1&2 Ab/P24 Ag 4thGn Nonreactive Medications Medications Current Medications Acetaminophen (Acetaminophen 325 Mg Tablet) 650 mg PO Q6H PRN PRN Reason: Headache/Pain Mild Scale (1-3) Al Hydroxide/Mg Hydroxide (Magnesium Hydrox/Alum Hydrox 30 Ml Oral.Susp) 30 ml PO Q6H PRN PRN Reason: Heartburn/Nausea Clonidine HCl (Clonidine Hcl 0.1 Mg Tablet) 0.1 mg PO BID [facility]; Protocol Last Admin: 02/18/22 08:39 Dose: 0.1 mg Clonidine HCl (Clonidine Hcl 0.1 Mg Tablet) 0.1 mg PO DAILY PRN; Protocol PRN Reason: anxiety Hydroxyzine HCl (Hydroxyzine Hcl 25 Mg Tablet) 25 mg PO Q6H PRN PRN Reason: Anxiety Last Admin: 02/15/22 16:30 Dose: 25 mg Magnesium Hydroxide (Milk Of Magnesia 30 Ml Oral.Susp) 30 ml PO DAILY PRN PRN Reason: Constipation Melatonin (Melatonin 3 Mg Tablet) 3 mg PO BEDTIME PRN PRN Reason: insomnia Olanzapine (Olanzapine 7.5 Mg Tablet) 15 mg PO BEDTIME [facility] Last Admin: 02/17/22 21:09 Dose: 15 mg Psyllium Hydrophilic Mucilloid (Psyllium Seed 3.4 Gm Powd.Pack) 3.4 gm PO DAILY [facility] Last Admin: 02/18/22 08:40 Dose: Not Given Trazodone HCl (Trazodone Hcl 50 Mg Tablet) 50 mg PO BEDTIME PRN PRN Reason: Insomnia Allergies Allergies Allergy/AdvReac Type Severity Reaction Status Date / Time No Known Allergies Allergy Verified 02/09/22 01:08 Assessment & Plan Assessment & Plan (1) Unspecified psychosis: Status: Acute Code(s): F29 - Unspecified psychosis not due to a substance or known physiological condition Plan Brian is a 26 y.o. Male who carries a dx of unspecified psychotic disorder. He self presented to [facility] on [facility] with his cousin due to increased anxiety and depression, bizarre behaviors, paranoia. Pt has been endorsing paranoid and latter-day delusions. No past psych hx as an adult, remote hx of treatment for ADHD in childhood. Substance use positive for cannabis only, denies alcohol abuse. Family hx of schizophrenia. Plan: 02/09: Pt says ?I dont believe? in meds, I dont like to use pills.? Asks for chamomile tea, also accepting of PRN Melatonin. Consider head CT, as pt has unknown psych hx and is presenting with psychotic sx, denies any hx of trauma to his head. 02/10: discloses paranoid delusions. agrees to zyprexa at . reports polytrauma of the head. 02/11: paranoid. slept very well after zyprexa 10 last night, no complaints. continue current mgmt. 02/12: psychosis showing mild improvement. declines to increase zyprexa to 15 mg at HS. 02/13: Pt agreeable to trial of clonidine 0.1 mg TID PRN for hyperarousal, agitation, anxiety. He continues to decline increase in zyprexa. 02/14: No changes to plan, pt is paranoid, bizarre thought content but safe and refuses increase in zyprexa 02/15: pt trialed PRN clonidine for agitation, reports benefit 02/16: schedule clonidine 0.1 mg BID for agitation, anxiety, hyperarousal, inattention due to reported benefit on PRN dose 02/17: zyprexa dosing increased to 15 mg at HS. 02/18: continue current mgmt. increasing insight into mental illness which is causing sense of loss. I spent __25____ minutes with the patient and/or on the patient floor today, greater than?50% of which was spent counseling/coordinating care. Reason for contiued inpatient stay Substantial Risk for: inability to function and rapid decompensation
[2022-02-18 20:30] VITALS: BP 139/65; PULSE 86; RESP 16; TEMP 36.8; O2SAT 98
[2022-02-18] MEDS: OLANZapine 7.5 MG TABLET 15 MG PO (20:31)
[2022-02-19 08:57] VITALS: BP 110/82; PULSE 71; RESP 15; TEMP 36.8; O2SAT 100
[2022-02-19] MEDS: cloNIDine HCL 0.1 MG TABLET PO ×2 (08:59→20:08)
[2022-02-19 09:01] VITALS: BMI 21.7
--- NOTE | 2022-02-19 14:41 | P.PNPSI_ITS ---
Subjective Subjective Date of Service: 02/19/22 Reason For Visit: disorganized thoughs, VH Interim History: pt reports he continues to sleep well. divulges some bizarre thoughts about time being wound back a bit today. 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 appears to be somewhat reassured by the end of the interview. agrees to continue with current mgmt for now. per staff, feeling better with new medication. c/o genital discoloration. anx 5, dep 3.no SI/HI/AVH. Mental Status Exam Mental Status Exam Narrative: A&O. In street clothes, adequate grooming. Good eye contact, attentive. No Tics or Tremors. No abnormal involuntary movements. Calm, less guarded. Non-pressured speech. No prolonged speech latency or dysarthria. affect is more flexible and non-labile. no SI/HI/AVH expressed. Thoughts are organized and linear seeming on some subjects, can also present as disorganized with bizarre and psychotic thoughts. No known cognitive or memory impairment. Insight/ Judgment improving. Diagnostics Vital Signs (24Hr): Vital Signs - 24 hr 02/18/22 20:30 02/19/22 08:57 Temperature 98.3 F 98.3 F Pulse Rate 86 71 Respiratory Rate 16 15 Blood Pressure 139/65 110/82 Pulse Oximetry 98 100 Oxygen Delivery Method Room Air Room Air BMI result Body Mass Index 21.7 Labs Results: 02/09/22 01:39 02/09/22 01:39 Labs: Laboratory Results - last 48 hr 02/14/22 02/14/22 11:13 11:13 T.pallidum Ab (EIA) Nonreactive HSV I IgG Ab <0.90 HSV II IgG 3.28 H Medications Medications Current Medications Acetaminophen (Acetaminophen 325 Mg Tablet) 650 mg PO Q6H PRN PRN Reason: Headache/Pain Mild Scale (1-3) Al Hydroxide/Mg Hydroxide (Magnesium Hydrox/Alum Hydrox 30 Ml Oral.Susp) 30 ml PO Q6H PRN PRN Reason: Heartburn/Nausea Benzocaine (Throat Lozenge, Medicated Lozenge) 1 lozenge MUCOUS MEM Q1H PRN PRN Reason: Sore Throat Clonidine HCl (Clonidine Hcl 0.1 Mg Tablet) 0.1 mg PO BID [facility]; Protocol Last Admin: 02/19/22 08:59 Dose: 0.1 mg Clonidine HCl (Clonidine Hcl 0.1 Mg Tablet) 0.1 mg PO DAILY PRN; Protocol PRN Reason: anxiety Hydroxyzine HCl (Hydroxyzine Hcl 25 Mg Tablet) 25 mg PO Q6H PRN PRN Reason: Anxiety Last Admin: 02/15/22 16:30 Dose: 25 mg Magnesium Hydroxide (Milk Of Magnesia 30 Ml Oral.Susp) 30 ml PO DAILY PRN PRN Reason: Constipation Melatonin (Melatonin 3 Mg Tablet) 3 mg PO BEDTIME PRN PRN Reason: insomnia Olanzapine (Olanzapine 7.5 Mg Tablet) 15 mg PO BEDTIME [facility] Last Admin: 02/18/22 20:31 Dose: 15 mg Psyllium Hydrophilic Mucilloid (Psyllium Seed 3.4 Gm Powd.Pack) 3.4 gm PO DAILY [facility] Last Admin: 02/19/22 09:00 Dose: 3.4 gm Trazodone HCl (Trazodone Hcl 50 Mg Tablet) 50 mg PO BEDTIME PRN PRN Reason: Insomnia Allergies Allergies Allergy/AdvReac Type Severity Reaction Status Date / Time No Known Allergies Allergy Verified 02/09/22 01:08 Assessment & Plan Assessment & Plan (1) Unspecified psychosis: Status: Acute Code(s): F29 - Unspecified psychosis not due to a substance or known physiological condition Plan Brian is a 26 y.o. Male who carries a dx of unspecified psychotic disorder. He self presented to [facility] on [facility] with his cousin due to increased anxiety and depression, bizarre behaviors, paranoia. Pt has been endorsing para noid and orthodoxy delusions. No past psych hx as an adult, remote hx of treatment for ADHD in childhood. Substance use positive for cannabis only, denies alcohol abuse. Family hx of schizophrenia. Plan: 02/09: Pt says ?I dont believe? in meds, I dont like to use pills.? Asks for chamomile tea, also accepting of PRN Melatonin. Consider head CT, as pt has unknown psych hx and is presenting with psychotic sx, denies any hx of trauma to his head. 02/10: discloses paranoid delusions. agrees to zyprexa at . reports polytrauma of the head. 02/11: paranoid. slept very well after zyprexa 10 last night, no complaints. continue current mgmt. 02/12: psychosis showing mild improvement. declines to increase zyprexa to 15 mg at HS. 02/13: Pt agreeable to trial of clonidine 0.1 mg TID PRN for hyperarousal, agitation, anxiety. He continues to decline increase in zyprexa. 02/14: No changes to plan, pt is paranoid, bizarre thought content but safe and refuses increase in zyprexa 02/15: pt trialed PRN clonidine for agitation, reports benefit 02/16: schedule clonidine 0.1 mg BID for agitation, anxiety, hyperarousal, inattention due to reported benefit on PRN dose 02/17: zyprexa dosing increased to 15 mg at HS. 02/18: continue current mgmt. increasing insight into mental illness which is causing sense of loss. 02/19: some bizarre ideation, mild disorganization. continue zyprexa 15 @HS, T/C dose increase soon. I spent ___25___ minutes with the patient and/or on the patient floor today, greater than?50% of which was spent counseling/coordinating care. Reason for contiued inpatient stay Substantial Risk for: inability to function and rapid decompensation
[2022-02-19] MEDS: OLANZapine 7.5 MG TABLET 15 MG PO (20:09)
[2022-02-19 20:10] VITALS: BP 134/66; PULSE 80; RESP 16; TEMP 36.9; O2SAT 97
[2022-02-19] MEDS: Throat Lozenge, Medicated LOZENGE 1 LOZENGE MUCOUS MEM (20:12)
[2022-02-20 09:55] VITALS: BP 128/76; PULSE 79; RESP 16; TEMP 36.6; O2SAT 99
[2022-02-20] MEDS: cloNIDine HCL 0.1 MG TABLET PO ×2 (10:08→21:39)
--- NOTE | 2022-02-20 14:19 | HO.PSYCHPN ---
Subjective Subjective Date of Service: 02/20/22 Reason For Visit: disorganized thoughs, VH Interim History: calm, cooperative. continues to struggle with acceptance of Dx, which he feels is very stigmatizing. existential questioning. reports he had a visit with his brother today, which was a good experience. remains delusional, talking about the monique of three and the connection to his great-grandmother's mental illness and his getting it three generations later. investing great meaning into trivial details and events around him. agreeable to increase zyprexa to 20 mg QHS. per staff, anxious. denies depression. napping. feels safe. attending groups. feeling better. denies SI/HI/AVH. eating and sleeping well. Mental Status Exam Mental Status Exam Narrative: A&O. In street clothes, adequate grooming. Good eye contact, attentive. No Tics or Tremors. No abnormal involuntary movements. Calm, less guarded. Non-pressured speech. No prolonged speech latency or dysarthria. affect is more flexible and non-labile. no SI/HI/AVH expressed. Thoughts are organized and linear, with bizarre and psychotic thought content. No known cognitive or memory impairment. Insight/ Judgment improving. Diagnostics Vital Signs (24Hr): Vital Signs - 24 hr 02/19/22 20:10 02/20/22 09:55 Temperature 98.5 F 97.9 F Pulse Rate 80 79 Respiratory Rate 16 16 Blood Pressure 134/66 128/76 Pulse Oximetry 97 99 Oxygen Delivery Method Room Air Room Air BMI result Body Mass Index 21.7 Labs Results: 02/09/22 01:39 02/09/22 01:39 Medications Medications Current Medications Acetaminophen (Acetaminophen 325 Mg Tablet) 650 mg PO Q6H PRN PRN Reason: Headache/Pain Mild Scale (1-3) Al Hydroxide/Mg Hydroxide (Magnesium Hydrox/Alum Hydrox 30 Ml Oral.Susp) 30 ml PO Q6H PRN PRN Reason: Heartburn/Nausea Benzocaine (Throat Lozenge, Medicated Lozenge) 1 lozenge MUCOUS MEM Q1H PRN PRN Reason: Sore Throat Last Admin: 02/19/22 20:12 Dose: 1 lozenge Clonidine HCl (Clonidine Hcl 0.1 Mg Tablet) 0.1 mg PO BID [facility]; Protocol Last Admin: 02/20/22 10:08 Dose: 0.1 mg Clonidine HCl (Clonidine Hcl 0.1 Mg Tablet) 0.1 mg PO DAILY PRN; Protocol PRN Reason: anxiety Hydroxyzine HCl (Hydroxyzine Hcl 25 Mg Tablet) 25 mg PO Q6H PRN PRN Reason: Anxiety Last Admin: 02/15/22 16:30 Dose: 25 mg Magnesium Hydroxide (Milk Of Magnesia 30 Ml Oral.Susp) 30 ml PO DAILY PRN PRN Reason: Constipation Melatonin (Melatonin 3 Mg Tablet) 3 mg PO BEDTIME PRN PRN Reason: insomnia Olanzapine (Olanzapine 10 Mg Tablet) 20 mg PO BEDTIME [facility] Psyllium Hydrophilic Mucilloid (Psyllium Seed 3.4 Gm Powd.Pack) 3.4 gm PO DAILY [facility] Last Admin: 02/20/22 10:09 Dose: 3.4 gm Trazodone HCl (Trazodone Hcl 50 Mg Tablet) 50 mg PO BEDTIME PRN PRN Reason: Insomnia Allergies Allergies Allergy/AdvReac Type Severity Reaction Status Date / Time No Known Allergies Allergy Verified 02/09/22 01:08 Assessment & Plan Assessment & Plan (1) Unspecified psychosis: Status: Acute Code(s): F29 - Unspecified psychosis not due to a substance or known physiological condition Plan Brian is a 26 y.o. Male who carries a dx of unspecified psychotic disorder. He self presented to [facility] with his cousin due to increased anxiety and depression, bizarre behaviors, paranoia. Pt has been endorsing paranoid and pentecostalism delusions. No past psych hx as an adult, remote hx of treatment for ADHD in childhood. Substance use positive for cannabis only, denies alcohol abuse. Family hx of schizophrenia. Plan: 02/09: Pt says ?I dont believe? in meds, I dont like to use pills.? Asks for chamomile tea, also accepting of PRN Melatonin. Consider head CT, as pt has unknown psych hx and is presenting with psychotic sx, denies any hx of trauma to his head. 02/10: discloses paranoid delusions. agrees to zyprexa at HS. reports polytrauma of the head. 02/11: paranoid. slept very well after zyprexa 10 last night, no complaints. continue current mgmt. 02/12: psychosis showing mild improvement. declines to increase zyprexa to 15 mg at HS. 02/13: Pt agreeable to trial of clonidine 0.1 mg TID PRN for hyperarousal, agitation, anxiety. He continues to decline increase in zyprexa. 02/14: No changes to plan, pt is paranoid, bizarre thought content but safe and refuses increase in zyprexa 02/15: pt trialed PRN clonidine for agitation, reports benefit 02/16: schedule clonidine 0.1 mg BID for agitation, anxiety, hyperarousal, inattention due to reported benefit on PRN dose 02/17: zyprexa dosing increased to 15 mg at HS. 02/18: continue current mgmt. increasing insight into mental illness which is causing sense of loss. 02/19: some bizarre ideation, mild disorganization. continue zyprexa 15 @HS, T/C dose increase soon. 02/20: remains delusional. increase zyprexa to 20 mg QHS. I spent __35____ minutes with the patient and/or on the patient floor today, greater than?50% of which was spent counseling/coordinating care. Reason for contiued inpatient stay Substantial Risk for: inability to function and rapid decompensation
[2022-02-20 21:30] VITALS: BP 121/67; PULSE 74; RESP 18; TEMP 37.1; O2SAT 97
[2022-02-20] MEDS: Melatonin 3 MG TABLET PO (21:38)
[2022-02-20] MEDS: OLANZapine 10 MG TABLET 20 MG PO (21:38)
[2022-02-20] MEDS: Throat Lozenge, Medicated LOZENGE 1 LOZENGE MUCOUS MEM (21:43)
[2022-02-21] MEDS: Throat Lozenge, Medicated LOZENGE 1 LOZENGE MUCOUS MEM ×2 (02:12→21:36)
[2022-02-21 08:30] VITALS: BP 127/65; PULSE 71; RESP 18; TEMP 36.3; O2SAT 99
[2022-02-21] MEDS: cloNIDine HCL 0.1 MG TABLET PO ×2 (08:47→21:35)
[2022-02-21] MEDS: Lithium Carbonate ER 450 MG TABLET.ER PO ×2 (15:09→21:37)
--- NOTE | 2022-02-21 16:38 | HO.PSYCHPN ---
Subjective Subjective Date of Service: 02/21/22 Reason For Visit: disorganized thoughs, VH Interim History: pt reports his mouth is exptremely dry today after zyprexa 20 mg last night. felt very sedated at HS but started awakening after only several hours of sleep. medication has also been helpful to slow his racing thoughts. on further discussion, pt reports that prior to hospitalization he had been sleeping very very little and having racing thoughts. MD suggests R/O bipolar disorder, since the 20 mg zyprexa would be expected to keep him asleep through the night and have been more effective for his thoughts by now. pt agrees to trial of lithium 450 BID now. per staff, c/o racing thoughts, dry mouth. visible, social. poor sleep with multiple MNA. Mental Status Exam Mental Status Exam Narrative: A&O. In street clothes, adequate grooming. Good eye contact, attentive. No Tics or Tremors. No abnormal involuntary movements. Calm, not guarded. Non-pressured speech. No prolonged speech latency or dysarthria. affect is full range and non-labile. no SI/HI/AVH expressed. Thoughts are organized and linear, without bizarre and psychotic thought content. No known cognitive or memory impairment. Insight/ Judgment improving. Diagnostics Vital Signs (24Hr): Vital Signs - 24 hr 02/20/22 21:30 02/21/22 08:30 Temperature 98.7 F 97.4 F Pulse Rate 74 71 Respiratory Rate 18 18 Blood Pressure 121/67 127/65 Pulse Oximetry 97 99 Oxygen Delivery Method Room Air Room Air BMI result Body Mass Index 21.7 Labs Results: 02/09/22 01:39 02/09/22 01:39 Medications Medications Current Medications Acetaminophen (Acetaminophen 325 Mg Tablet) 650 mg PO Q6H PRN PRN Reason: Headache/Pain Mild Scale (1-3) Al Hydroxide/Mg Hydroxide (Magnesium Hydrox/Alum Hydrox 30 Ml Oral.Susp) 30 ml PO Q6H PRN PRN Reason: Heartburn/Nausea Benzocaine (Throat Lozenge, Medicated Lozenge) 1 lozenge MUCOUS MEM Q1H PRN PRN Reason: Sore Throat Last Admin: 02/21/22 02:12 Dose: 1 lozenge Clonidine HCl (Clonidine Hcl 0.1 Mg Tablet) 0.1 mg PO BID [facility]; Protocol Last Admin: 02/21/22 08:47 Dose: 0.1 mg Clonidine HCl (Clonidine Hcl 0.1 Mg Tablet) 0.1 mg PO DAILY PRN; Protocol PRN Reason: anxiety Hydroxyzine HCl (Hydroxyzine Hcl 25 Mg Tablet) 25 mg PO Q6H PRN PRN Reason: Anxiety Last Admin: 02/15/22 16:30 Dose: 25 mg [place] Carbonate ([place] Carbonate Er 450 Mg Tablet.Er) 450 mg PO BID [facility] Last Admin: 02/21/22 15:09 Dose: 450 mg Magnesium Hydroxide (Milk Of Magnesia 30 Ml Oral.Susp) 30 ml PO DAILY PRN PRN Reason: Constipation Melatonin (Melatonin 3 Mg Tablet) 3 mg PO BEDTIME PRN PRN Reason: insomnia Last Admin: 02/20/22 21:38 Dose: 3 mg Olanzapine (Olanzapine 7.5 Mg Tablet) 15 mg PO BEDTIME [facility] Psyllium Hydrophilic Mucilloid (Psyllium Seed 3.4 Gm Powd.Pack) 3.4 gm PO DAILY [facility] Last Admin: 02/21/22 08:47 Dose: 3.4 gm Trazodone HCl (Trazodone Hcl 50 Mg Tablet) 50 mg PO BEDTIME PRN PRN Reason: Insomnia Allergies Allergies Allergy/AdvReac Type Severity Reaction Status Date / Time No Known Allergies Allergy Verified 02/09/22 01:08 Assessment & Plan Assessment & Plan (1) Unspecified psychosis: Status: Acute Code(s): F29 - Unspecified psychosis not due to a substance or known physiological condition Plan Brian is a 26 y.o. Male who carries a dx of unspecified psychotic disorder. He self presented to [facility] with his cousin due to increased anxiety and depression, bizarre behaviors, paranoia. Pt has been endorsing paranoid and baptist delusions. No past psych hx as an adult, remote hx of treatment for ADHD in childhood. Substance use positive for cannabis only, denies alcohol abuse. Family hx of schizophrenia. Plan: 02/09: Pt says ?I dont believe? in meds, I dont like to use pills.? Asks for chamomile tea, also accepting of PRN Melatonin. Consider head CT, as pt has unknown psych hx and is presenting with psychotic sx, denies any hx of trauma to his head. 02/10: discloses paranoid delusions. agrees to zyprexa at HS. reports polytrauma of the head. 02/11: paranoid. slept very well after zyprexa 10 last night, no complaints. continue current mgmt. 02/12: psychosis showing mild improvement. declines to increase zyprexa to 15 mg at HS. 02/13: Pt agreeable to trial of clonidine 0.1 mg TID PRN for hyperarousal, agitation, anxiety. He continues to decline increase in zyprexa. 02/14: No changes to plan, pt is paranoid, bizarre thought content but safe and refuses increase in zyprexa 02/15: pt trialed PRN clonidine for agitation, reports benefit 02/16: schedule clonidine 0.1 mg BID for agitation, anxiety, hyperarousal, inattention due to reported benefit on PRN dose 02/17: zyprexa dosing increased to 15 mg at HS. 02/18: continue current mgmt. increasing insight into mental illness which is causing sense of loss. 02/19: some bizarre ideation, mild disorganization. continue zyprexa 15 @HS, T/C dose increase soon. 02/20: remains delusional. increase zyprexa to 20 mg QHS. 02/21: no delusions expressed, c/o dry mouth. also racing thoughts persisting as well as insomnia (MNA). will R/O bipolar Disorder with lithium trial. started lithium 450 BID today. I spent __25____ minutes with the patient and/or on the patient floor today, greater than?50% of which was spent counseling/coordinating care. Reason for contiued inpatient stay Substantial Risk for: inability to function and rapid decompensation
[2022-02-21 21:30] VITALS: BP 112/61; PULSE 81; RESP 18; TEMP 36.7; O2SAT 98
[2022-02-21] MEDS: Melatonin 3 MG TABLET PO (21:36)
[2022-02-21] MEDS: OLANZapine 7.5 MG TABLET 15 MG PO (21:37)
[2022-02-21] MEDS: traZODone HCL 50 MG TABLET PO ×2 (21:38→22:32)
[2022-02-22] MEDS: Throat Lozenge, Medicated LOZENGE 1 LOZENGE MUCOUS MEM ×3 (06:45→20:31)
[2022-02-22 07:45] VITALS: BP 124/69; PULSE 68; RESP 20; TEMP 36.6; O2SAT 100
[2022-02-22] MEDS: Lithium Carbonate ER 450 MG TABLET.ER PO (08:01)
[2022-02-22] MEDS: cloNIDine HCL 0.1 MG TABLET PO ×2 (08:01→20:28)
--- NOTE | 2022-02-22 16:23 | P.PNPSI_ITS ---
Subjective Subjective Date of Service: 02/22/22 Reason For Visit: disorganized thoughs, VH Interim History: expresses paranoid delusions regarding a peer's always knowing what he is doing and what he is about to say before he says it. states he feels the lithium is helpful, as after he takes it he feels his thoughts are centered. agrees to increase the dose to 600 BID. continues to awaken in the middle of the night. per staff, visible, pleasant, quiet. focused on a particular peer and witchcraft. Mental Status Exam Mental Status Exam Narrative: A&O. In street clothes, adequate grooming. Good eye contact, attentive. No Tics or Tremors. No abnormal involuntary movements. Calm, not guarded. Non-pressured speech. No prolonged speech latency or dysarthria. affect is full range and non-labile. no SI/HI/AVH expressed. Thoughts are organized and linear, with prominent bizarre and psychotic thought content. No known cognitive or memory impairment. Insight/ Judgment improving. Diagnostics Vital Signs (24Hr): Vital Signs - 24 hr 02/21/22 21:30 02/22/22 07:45 Temperature 98.1 F 97.8 F Pulse Rate 81 68 Respiratory Rate 18 20 Blood Pressure 112/61 124/69 Pulse Oximetry 98 100 Oxygen Delivery Method Room Air Room Air BMI result Body Mass Index 21.7 Labs Results: 02/09/22 01:39 02/09/22 01:39 Medications Medications Current Medications Acetaminophen (Acetaminophen 325 Mg Tablet) 650 mg PO Q6H PRN PRN Reason: Headache/Pain Mild Scale (1-3) Al Hydroxide/Mg Hydroxide (Magnesium Hydrox/Alum Hydrox 30 Ml Oral.Susp) 30 ml PO Q6H PRN PRN Reason: Heartburn/Nausea Benzocaine (Throat Lozenge, Medicated Lozenge) 1 lozenge MUCOUS MEM Q1H PRN PRN Reason: Sore Throat Last Admin: 02/22/22 13:41 Dose: 1 lozenge Clonidine HCl (Clonidine Hcl 0.1 Mg Tablet) 0.1 mg PO BID [facility]; Protocol Last Admin: 02/22/22 08:01 Dose: 0.1 mg Clonidine HCl (Clonidine Hcl 0.1 Mg Tablet) 0.1 mg PO DAILY PRN; Protocol PRN Reason: anxiety Hydroxyzine HCl (Hydroxyzine Hcl 25 Mg Tablet) 25 mg PO Q6H PRN PRN Reason: Anxiety Last Admin: 02/15/22 16:30 Dose: 25 mg [place] Carbonate ([place] Carbonate Er 300 Mg Tablet.Er) 600 mg PO BID [facility] Magnesium Hydroxide (Milk Of Magnesia 30 Ml Oral.Susp) 30 ml PO DAILY PRN PRN Reason: Constipation Melatonin (Melatonin 3 Mg Tablet) 3 mg PO BEDTIME PRN PRN Reason: insomnia Last Admin: 02/21/22 21:36 Dose: 3 mg Olanzapine (Olanzapine 7.5 Mg Tablet) 15 mg PO BEDTIME [facility] Psyllium Hydrophilic Mucilloid (Psyllium Seed 3.4 Gm Powd.Pack) 3.4 gm PO DAILY [facility] Last Admin: 02/22/22 08:02 Dose: 3.4 gm Trazodone HCl (Trazodone Hcl 50 Mg Tablet) 50 mg PO BEDTIME PRN PRN Reason: Insomnia Last Admin: 02/21/22 22:32 Dose: 50 mg Allergies Allergies Allergy/AdvReac Type Severity Reaction Status Date / Time No Known Allergies Allergy Verified 02/09/22 01:08 Assessment & Plan Assessment & Plan (1) Unspecified psychosis: Status: Acute Code(s): F29 - Unspecified psychosis not due to a substance or known physiological co ndition Plan Brian is a 26 y.o. Male who carries a dx of unspecified psychotic disorder. He self presented to [facility] on [facility] with his cousin due to increased anxiety and depression, bizarre behaviors, paranoia. Pt has been endorsing paranoid and moravian delusions. No past psych hx as an adult, remote hx of treatment for ADHD in childhood. Substance use positive for cannabis only, denies alcohol abuse. Family hx of schizophrenia. Plan: 02/09: Pt says ?I dont believe? in meds, I dont like to use pills.? Asks for chamomile tea, also accepting of PRN Melatonin. Consider head CT, as pt has unknown psych hx and is presenting with psychotic sx, denies any hx of trauma to his head. 02/10: discloses paranoid delusions. agrees to zyprexa at . reports polytrauma of the head. 02/11: paranoid. slept very well after zyprexa 10 last night, no complaints. continue current mgmt. 02/12: psychosis showing mild improvement. declines to increase zyprexa to 15 mg at HS. 02/13: Pt agreeable to trial of clonidine 0.1 mg TID PRN for hyperarousal, agitati on, anxiety. He continues to decline increase in zyprexa. 02/14: No changes to plan, pt is paranoid, bizarre thought content but safe and refuses increase in zyprexa 02/15: pt trialed PRN clonidine for agitation, reports benefit 02/16: schedule clonidine 0.1 mg BID for agitation, anxiety, hyperarousal, i nattention due to reported benefit on PRN dose 02/17: zyprexa dosing increased to 15 mg at HS. 02/18: continue current mgmt. increasing insight into mental illness which is causing sense of loss. 02/19: some bizarre ideation, mild disorganization. continue zyprexa 15 @HS, T/C dose increase soon. 02/20: remains delusional. increase zyprexa to 20 mg QHS. 02/21: no delusions expressed, c/o dry mouth. also racing thoughts persisting as well as insomnia (MNA). will R/O bipolar Disorder with lithium trial. started lithium 450 BID today. 02/22: lithium increased to 600 BID as of tonight. delusional re peer. I spent ___25___ minutes with the patient and/or on the patient floor today, greater than?50% of which was spent counseling/coordinating care. Reason for contiued inpatient stay Substantial Risk for: inability to function and rapid decompensation
[2022-02-22 20:20] VITALS: BP 133/63; PULSE 94; RESP 16; TEMP 36.7; O2SAT 96
[2022-02-22] MEDS: Lithium Carbonate ER 300 MG TABLET.ER 600 MG PO (20:29)
[2022-02-22] MEDS: OLANZapine 7.5 MG TABLET 15 MG PO (20:29)
[2022-02-23 08:52] VITALS: BP 121/90; PULSE 71; RESP 16; TEMP 36.6; O2SAT 98
[2022-02-23] MEDS: Lithium Carbonate ER 300 MG TABLET.ER 600 MG PO ×2 (08:53→20:23)
[2022-02-23] MEDS: cloNIDine HCL 0.1 MG TABLET PO ×2 (08:53→20:23)
--- NOTE | 2022-02-23 13:28 | P.PNPSI_ITS ---
Subjective Subjective Date of Service: 02/23/22 Reason For Visit: disorganized thoughs, VH Interim History: calm and cooperative. less eye contact, less interested in engaging than in recent days. asks what is going on, pt goes on a long speech about creating monsters, says he know what we are doing here, references the peer he was fixated upon yesterday implying we are making her a monster. says he likes the movie king smitha, asks if likes it, then links the monster feature aspect of it to what we are doing here. better be careful what you create. it might be a monster. that's your warning shot, by the way. otherwise claims he felt clear-headed this morning. still waking up a lot at night. will to give present regimen more time, but open to increasing zyprexa at HS. per staff, upset someone moved his laundry yesterday. on about witchcraft. irritable, fa tigued, quiet. religiously preoccupied. brighter affect in the afternoon. had a good call with his mother. anx 6. lithium dosing increased. denies depression. still not sleeping that well. slept until 0500. Mental Status Exam Mental Status Exam Narrative: A&O. In street clothes, adequate grooming. decreased eye contact, attentive. No Tics or Tremors. No abnormal involuntary movements. Calm, guarded. non- pressured speech. No prolonged speech latency or dysarthria. affect is constric woody and non-labile. no SI/HI/AVH expressed. Thoughts are organized and linear, with prominent bizarre and psychotic thought content. No known cognitive or memory impairment. Insight/ Judgment impaired. Diagnostics Vital Signs (24Hr): Vital Signs - 24 hr 02/22/22 20:20 02/23/22 08:52 Temperature 98.1 F 97.8 F Pulse Rate 94 71 Respiratory Rate 16 16 Blood Pressure 133/63 121/90 H Pulse Oximetry 96 98 Oxygen Delivery Method Room Air Room Air BMI result Body Mass Index 21.7 Labs Results: 02/09/22 01:39 02/09/22 01:39 Medications Medications Current Medications Acetaminophen (Acetaminophen 325 Mg Tablet) 650 mg PO Q6H PRN PRN Reason: Headache/Pain Mild Scale (1-3) Al Hydroxide/Mg Hydroxide (Magnesium Hydrox/Alum Hydrox 30 Ml Oral.Susp) 30 ml PO Q6H PRN PRN Reason: Heartburn/Nausea Benzocaine (Throat Lozenge, Medicated Lozenge) 1 lozenge MUCOUS MEM Q1H PRN PRN Reason: Sore Throat Last Admin: 02/22/22 20:31 Dose: 1 lozenge Clonidine HCl (Clonidine Hcl 0.1 Mg Tablet) 0.1 mg PO BID [facility]; Protocol Last Admin: 02/23/22 08:53 Dose: 0.1 mg Clonidine HCl (Clonidine Hcl 0.1 Mg Tablet) 0.1 mg PO DAILY PRN; Protocol PRN Reason: anxiety Hydroxyzine HCl (Hydroxyzine Hcl 25 Mg Tablet) 25 mg PO Q6H PRN PRN Reason: Anxiety Last Admin: 02/15/22 16:30 Dose: 25 mg [place] Carbonate ([place] Carbonate Er 300 Mg Tablet.Er) 600 mg PO BID [facility] Last Admin: 02/23/22 08:53 Dose: 600 mg Magnesium Hydroxide (Milk Of Magnesia 30 Ml Oral.Susp) 30 ml PO DAILY PRN PRN Reason: Constipation Melatonin (Melatonin 3 Mg Tablet) 3 mg PO BEDTIME PRN PRN Reason: insomnia Last Admin: 02/21/22 21:36 Dose: 3 mg Olanzapine (Olanzapine 7.5 Mg Tablet) 15 mg PO BEDTIME [facility] Last Admin: 02/22/22 20:29 Dose: 15 mg Psyllium Hydrophilic Mucilloid (Psyllium Seed 3.4 Gm Powd.Pack) 3.4 gm PO DAILY [facility] Last Admin: 02/23/22 08:53 Dose: 3.4 gm Trazodone HCl (Trazodone Hcl 50 Mg Tablet) 50 mg PO BEDTIME PRN PRN Reason: Insomnia Last Admin: 02/21/22 22:32 Dose: 50 mg Allergies Allergies Allergy/AdvReac Type Severity Reaction Status Date / Time No Known Allergies Allergy Verified 02/09/22 01:08 Assessment & Plan Assessment & Plan (1) Unspecified psychosis: Status: Acute Code(s): F29 - Unspecified psychosis not due to a substance or known physiological condition Plan Brian is a 26 y.o. Male who carries a dx of unspecified psychotic disorder. He self presented to [facility] with his cousin due to increased anxiety and depression, bizarre behaviors, paranoia. Pt has been endorsing paranoid and rastafari delusions. No past psych hx as an adult, remote hx of treatment for ADHD in childhood. Substance use positive for cannabis only, denies alcohol abuse. Family hx of schizophrenia. Plan: 02/09: Pt says ?I dont believe? in meds, I dont like to use pills.? Asks for chamomile tea, also accepting of PRN Melatonin. Consider head CT, as pt has unknown psych hx and is presenting with psychotic sx, denies any hx of trauma to his head. 02/10: discloses paranoid delusions. agrees to zyprexa at HS. reports poly trauma of the head. 02/11: paranoid. slept very well after zyprexa 10 last night, no complaints. co ntinue current mgmt. 02/12: psychosis showing mild improvement. declines to increase zyprexa to 15 mg at HS. 02/13: Pt agreeable to trial of clonidine 0.1 mg TID PRN for hyperarousal, agitation, anxiety. He continues to decline increase in zyprexa. 02/14: No changes to plan, pt is paranoid, bizarre thought content but safe and refuses increase in zyprexa 02/15: pt trialed PRN clonidine for agitation, reports benefit 02/16: schedule clonidine 0.1 mg BID for agitation, anxiety, hyperarousal, inattention due to reported benefit on PRN dose 02/17: zyprexa dosing increased to 15 mg at HS. 02/18: continue current mgmt. increasing insight into mental illness which is causing sense of loss. 02/19: some bizarre ideation, mild disorganization. continue zyprexa 15 @HS, T/C dose increase soon. 02/20: remains delusional. increase zyprexa to 20 mg QHS. 02/21: no delusions expressed, c/o dry mouth. also racing thoughts persisting as well as insomnia (MNA). will R/O bipolar Disorder with lithium trial. started lithium 450 BID today. 02/22: lithium increased to 600 BID as of tonight. delusional re peer. 02/23: delusions and poor sleep continue. no change in medications. T/C increase in HS zyprexa back to 20 mg if does not sleep well again tonight. I spent ___35___ minutes with the patient and/or on the patient floor today, greater than?50% of which was spent counseling/coordinating care. Reason for contiued inpatient stay Substantial Risk for: inability to function and rapid decompensation
--- NOTE | 2022-02-23 13:48 | MHC.CLN ---
F/U SHOWING FAVORABLE WEIGHT GAIN SINCE ADMISSION, +16.6%. BMI=21.7. 92% IBW. NO REPORTED CONCERNS WITH INTAKE/APPETITE. LIKES ENSURE SUPPLEMENT. CONTINUE REGULAR DIET WITH ENSURE BID. RD TO FOLLOW WEEKLY.
[2022-02-23] MEDS: OLANZapine 7.5 MG TABLET 15 MG PO (20:23)
[2022-02-23 20:25] VITALS: BP 141/63; PULSE 78; RESP 14; TEMP 36.6; O2SAT 99
[2022-02-24 08:17] VITALS: BP 131/80; PULSE 68; RESP 16; TEMP 36.5; O2SAT 99
[2022-02-24] MEDS: cloNIDine HCL 0.1 MG TABLET PO ×2 (08:19→21:19)
[2022-02-24] MEDS: Lithium Carbonate ER 300 MG TABLET.ER 600 MG PO ×2 (08:20→21:18)
--- NOTE | 2022-02-24 14:07 | HO.PSYCHPN ---
Subjective Subjective Date of Service: 02/24/22 Reason For Visit: disorganized thoughs, VH Interim History: sleeping through afternoon, awake around 1. states he awakened repeatedly in the night and slept well after breakfast. talks of the energy transfer on the unit and how we are creating a monster by the way we are transferring energy. agreeable to increase zyprexa back to 20 mg for sleep (and psychosis). per staff, vivid dreams. poor insight. 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 peer is a witch and is reading his thoughts. med-compliant. c/o nightmares. Mental Status Exam Mental Status Exam Narrative: A&O. In street clothes, adequate grooming. decreased eye contact, attentive. No Tics or Tremors. No abnormal involuntary movements. Calm, guarded. non-pressured speech. No prolonged speech latency or dysarthria. affect is constricted and non-labile. no SI/HI/AVH expressed. Thoughts are less organized and linear, with prominent bizarre and psychotic thought content. No known cognitive or memory impairment. Insight/ Judgment impaired. Diagnostics Vital Signs (24Hr): Vital Signs - 24 hr 02/23/22 20:25 02/24/22 08:17 Temperature 97.8 F 97.7 F Pulse Rate 78 68 Respiratory Rate 14 16 Blood Pressure 141/63 H 131/80 Pulse Oximetry 99 99 Oxygen Delivery Method Room Air Room Air BMI result Body Mass Index 21.7 Labs Results: 02/09/22 01:39 02/09/22 01:39 Medications Medications Current Medications Acetaminophen (Acetaminophen 325 Mg Tablet) 650 mg PO Q6H PRN PRN Reason: Headache/Pain Mild Scale (1-3) Al Hydroxide/Mg Hydroxide (Magnesium Hydrox/Alum Hydrox 30 Ml Oral.Susp) 30 ml PO Q6H PRN PRN Reason: Heartburn/Nausea Benzocaine (Throat Lozenge, Medicated Lozenge) 1 lozenge MUCOUS MEM Q1H PRN PRN Reason: Sore Throat Last Admin: 02/22/22 20:31 Dose: 1 lozenge Clonidine HCl (Clonidine Hcl 0.1 Mg Tablet) 0.1 mg PO BID ELDER; Protocol Last Admin: 02/24/22 08:19 Dose: 0.1 mg Clonidine HCl (Clonidine Hcl 0.1 Mg Tablet) 0.1 mg PO DAILY PRN; Protocol PRN Reason: anxiety Hydroxyzine HCl (Hydroxyzine Hcl 25 Mg Tablet) 25 mg PO Q6H PRN PRN Reason: Anxiety Last Admin: 02/15/22 16:30 Dose: 25 mg [place] Carbonate ([place] Carbonate Er 300 Mg Tablet.Er) 600 mg PO BID ELDER Last Admin: 02/24/22 08:20 Dose: 600 mg Magnesium Hydroxide (Milk Of Magnesia 30 Ml Oral.Susp) 30 ml PO DAILY PRN PRN Reason: Constipation Melatonin (Melatonin 3 Mg Tablet) 3 mg PO BEDTIME PRN PRN Reason: insomnia Last Admin: 02/21/22 21:36 Dose: 3 mg Olanzapine (Olanzapine 10 Mg Tablet) 20 mg PO BEDTIME ELDER Psyllium Hydrophilic Mucilloid (Psyllium Seed 3.4 Gm Powd.Pack) 3.4 gm PO DAILY ELDER Last Admin: 02/24/22 08:19 Dose: 3.4 gm Trazodone HCl (Trazodone Hcl 50 Mg Tablet) 50 mg PO BEDTIME PRN PRN Reason: Insomnia Last Admin: 02/21/22 22:32 Dose: 50 mg Allergies Allergies Allergy/AdvReac Type Severity Reaction Status Date / Time No Known Allergies Allergy Verified 02/09/22 01:08 Assessment & Plan Assessment & Plan (1) Unspecified psychosis: Status: Acute Code(s): F29 - Unspecified psychosis not due to a substance or known physiological condition Plan Brian is a 26 y.o. Male who carries a dx of unspecified psychotic disorder. He self presented to [facility] on [facility] with his cousin due to increased anxiety and depression, bizarre behaviors, paranoia. Pt has been endorsing paranoid and denominational delusions. No past psych hx as an adult, remote hx of treatment for ADHD in childhood. Substance use positive for cannabis only, denies alcohol abuse. Family hx of schizophrenia. Plan: 02/09: Pt says ?I dont believe? in meds, I dont like to use pills.? Asks for chamomile tea, also accepting of PRN Melatonin. Consider head CT, as pt has unknown psych hx and is presenting with psychotic sx, denies any hx of trauma to his head. 02/10: discloses paranoid delusions. agrees to zyprexa at . reports polytrauma of the head. 02/11: paranoid. slept very well after zyprexa 10 last night, no complaints. continue current mgmt. 02/12: psychosis showing mild improvement. declines to increase zyprexa to 15 mg at HS. 02/13: Pt agreeable to trial of clonidine 0.1 mg TID PRN for hyperarousal, agitation, anxiety. He continues to decline increase in zyprexa. 02/14: No changes to plan, pt is paranoid, bizarre thought content but safe and refuses increase in zyprexa 02/15: pt trialed PRN clonidine for agitation, reports benefit 02/16: schedule clonidine 0.1 mg BID for agitation, anxiety, hyperarousal, inattention due to reported benefit on PRN dose 02/17: zyprexa dosing increased to 15 mg at HS. 02/18: continue current mgmt. increasing insight into mental illness which is causing sense of loss. 02/19: some bizarre ideation, mild disorganization. continue zyprexa 15 @HS, T/C dose increase soon. 02/20: remains delusional. increase zyprexa to 20 mg QHS. 02/21: no delusions expressed, c/o dry mouth. also racing thoughts persisting as well as insomnia (MNA). will R/O bipolar Disorder with lithium trial. started lithium 450 BID today. 02/22: lithium increased to 600 BID as of ton. delusional re peer. 02/23: delusions and poor sleep continue. no change in medications. T/C increase in HS zyprexa back to 20 mg if does not sleep well again tonight. 02/24: remains delusional with interrupted sleep. zyprexa increased to 20 mg as of 02/24. I spent ___25___ minutes with the patient and/or on the patient floor today, greater than?50% of which was spent counseling/coordinating care. Reason for contiued inpatient stay Substantial Risk for: inability to function and rapid decompensation
[2022-02-24 21:17] VITALS: BP 131/72; PULSE 94; TEMP 36.8; O2SAT 96
[2022-02-24] MEDS: OLANZapine 10 MG TABLET 20 MG PO (21:18)
[2022-02-24] MEDS: traZODone HCL 50 MG TABLET PO (21:19)
[2022-02-24] MEDS: Melatonin 3 MG TABLET PO (21:19)
[2022-02-24] MEDS: Throat Lozenge, Medicated LOZENGE 1 LOZENGE MUCOUS MEM (21:25)
[2022-02-25 06:00] VITALS: BP 118/81; PULSE 81; RESP 16; TEMP 36.6; O2SAT 100
[2022-02-25] MEDS: Throat Lozenge, Medicated LOZENGE 1 LOZENGE MUCOUS MEM (06:40)
[2022-02-25] MEDS: Lithium Carbonate ER 300 MG TABLET.ER 600 MG PO ×2 (09:12→20:04)
[2022-02-25] MEDS: cloNIDine HCL 0.1 MG TABLET PO ×2 (09:12→20:04)
--- NOTE | 2022-02-25 11:32 | P.PNPSI_ITS ---
Subjective Subjective Date of Service: 02/25/22 Reason For Visit: disorganized thoughs, VH Subjective Notes: Conditional Voluntary Interim History: Pt reports sleeping on and off. He reports he had apartment in past but did not trust landlord and left. He also reports he was not able to work and financially was falling behind rent. He reports he plans to go to his mother's house, he also adds that this information he had planned to keep it private (with excepti on of his SW Heidi) as he did not know who he can trust on the unit. He denies SI/HI. Per nursing, he has been visible on the unit, no behavioral concerns Medication Compliance: Yes Side effects from medications: No Review of Systems Review of Systems CVS: No c/o chest pain, palpitations, no SOB [employer]OR B[employer]ING: No c/o dizziness, headache GI: No c/o Nausea, Vomiting, diarrhea, constipation or heartburn Yes all other systems are reviewed and are negative Mental Status Exam Mental Status Exam Narrative: A&O. In street clothes, adequate grooming. decreased eye contact, attentive. No Tics or Tremors. No abnormal involuntary movements. Calm, guarded. non- pressured speech. No prolonged speech latency or dysarthria. affect is constricted and non-labile. no SI/HI/AVH expressed. Thoughts are less organized and linear, with prominent bizarre and psychotic thought content. No known cognitive or memory impairment. Insight/ Judgment impaired. Diagnostics Vital Signs (24Hr): Vital Signs - 24 hr 02/24/22 21:17 02/25/22 06:00 Temperature 98.3 F 97.9 F Pulse Rate 94 81 Respiratory Rate 16 Blood Pressure 131/72 118/81 Pulse Oximetry 96 100 Oxygen Delivery Method Room Air Room Air BMI result Body Mass Index 21.7 Labs Results: 02/09/22 01:39 02/09/22 01:39 Medications Medications Current Medications Acetaminophen (Acetaminophen 325 Mg Tablet) 650 mg PO Q6H PRN PRN Reason: Headache/Pain Mild Scale (1-3) Al Hydroxide/Mg Hydroxide (Magnesium Hydrox/Alum Hydrox 30 Ml Oral.Susp) 30 ml PO Q6H PRN PRN Reason: Heartburn/Nausea Benzocaine (Throat Lozenge, Medicated Lozenge) 1 lozenge MUCOUS MEM Q1H PRN PRN Reason: Sore Throat Last Admin: 02/25/22 06:40 Dose: 1 lozenge Clonidine HCl (Clonidine Hcl 0.1 Mg Tablet) 0.1 mg PO BID ELDER; Protocol Last Admin: 02/25/22 09:12 Dose: 0.1 mg Clonidine HCl (Clonidine Hcl 0.1 Mg Tablet) 0.1 mg PO DAILY PRN; Protocol PRN Reason: anxiety Hydroxyzine HCl (Hydroxyzine Hcl 25 Mg Tablet) 25 mg PO Q6H PRN PRN Reason: Anxiety Last Admin: 02/15/22 16:30 Dose: 25 mg [place] Carbonate ([place] Carbonate Er 300 Mg Tablet.Er) 600 mg PO BID ELDER Last Admin: 02/25/22 09:12 Dose: 600 mg Magnesium Hydroxide (Milk Of Magnesia 30 Ml Oral.Susp) 30 ml PO DAILY PRN PRN Reason: Constipation Melatonin (Melatonin 3 Mg Tablet) 3 mg PO BEDTIME PRN PRN Reason: insomnia Last Admin: 02/24/22 21:19 Dose: 3 mg Olanzapine (Olanzapine 10 Mg Tablet) 20 mg PO BEDTIME ELDER Last Admin: 02/24/22 21:18 Dose: 20 mg Psyllium Hydrophilic Mucilloid (Psyllium Seed 3.4 Gm Powd.Pack) 3.4 gm PO DAILY ELDER Last Admin: 02/25/22 09:12 Dose: 3.4 gm Trazodone HCl (Trazodone Hcl 50 Mg Tablet) 50 mg PO BEDTIME PRN PRN Reason: Insomnia Last Admin: 02/24/22 21:19 Dose: 50 mg Allergies Allergies Allergy/AdvReac Type Severity Reaction Status Date / Time No Known Allergies Allergy Verified 02/09/22 01:08 Assessment & Plan Assessment & Plan (1) Unspecified psychosis: Status: Acute Code(s): F29 - Unspecified psychosis not due to a substance or known physiological condition Plan Brian is a 26 y.o. Male who carries a dx of unspecified psychotic disorder. He self presented to [facility] on [address] with his cousin due to increased anxiety and depression, bizarre behaviors, paranoia. Pt has been endorsing paranoid and confucianism delusions. No past psych hx as an adult, remote hx of treatment for ADHD in childhood. Substance use positive for cannabis only, denies alcohol abuse. Family hx of schizophrenia. Plan: 02/09: Pt says ?I dont believe? in meds, I dont like to use pills.? Asks for chamomile tea, also accepting of PRN Melatonin. Consider head CT, as pt has unknown psych hx and is presenting with psychotic sx, denies any hx of trauma to his head. 02/10: discloses paranoid delusions. agrees to zyprexa at HS. reports polytrauma of the head. 02/11: paranoid. slept very well after zyprexa 10 last night, no complaints. continue current mgmt. 02/12: psychosis showing mild improvement. declines to increase zyprexa to 15 mg at HS. 02/13: Pt agreeable to trial of clonidine 0.1 mg TID PRN for hyperarousal, agitation, anxiety. He continues to decline increase in zyprexa. 02/14: No changes to plan, pt is paranoid, bizarre thought content but safe and refuses increase in zyprexa 02/15: pt trialed PRN clonidine for agitation, reports benefit 02/16: schedule clonidine 0.1 mg BID for agitation, anxiety, hyperarousal, inattention due to reported benefit on PRN dose 02/17: zyprexa dosing increased to 15 mg at HS. 02/18: continue current mgmt. increasing insight into mental illness which is causing sense of loss. 02/19: some bizarre ideation, mild disorganization. continue zyprexa 15 @HS, T/C dose increase soon. 02/20: remains delusional. increase zyprexa to 20 mg QHS. 02/21: no delusions expressed, c/o dry mouth. also racing thoughts persisting as well as insomnia (MNA). will R/O bipolar Disorder with lithium trial. started lithium 450 BID today. 02/22: lithium increased to 600 BID as of ton. delusional re peer. 02/23: delusions and poor sleep continue. no change in medications. T/C increase in HS zyprexa back to 20 mg if does not sleep well again tonight. 02/24: remains delusional with interrupted sleep. zyprexa increased to 20 mg as of 02/24. 02/25 continue current medications. I spent minutes with the patient and/or on the patient floor today, greater than?50% of which was spent counseling/coordinating care. Reason for contiued inpatient stay Substantial Risk for: inability to function
[2022-02-25 19:58] VITALS: BP 126/88; PULSE 88; RESP 14; TEMP 36.8; O2SAT 98
[2022-02-25] MEDS: OLANZapine 10 MG TABLET 20 MG PO (20:04)
[2022-02-25 20:09] VITALS: BMI 22.6
[2022-02-26 07:00] VITALS: BMI 22.6
[2022-02-26 09:30] VITALS: BP 107/72; PULSE 73; RESP 18; TEMP 36.8; O2SAT 100
[2022-02-26] MEDS: cloNIDine HCL 0.1 MG TABLET PO ×2 (10:13→21:14)
[2022-02-26] MEDS: Lithium Carbonate ER 300 MG TABLET.ER 600 MG PO ×2 (10:13→21:14)
--- NOTE | 2022-02-26 14:57 | P.PNPSI_ITS ---
Subjective Subjective Date of Service: 02/26/22 Reason For Visit: disorganized thoughs, VH Interim History: calm, cooperative, well-related. once again c/o discoloration around the head of his penis, very concerned it is STI (no pain, not itchy, c/o frequency (but also on lithium, which could explain that)). informs pt will have hospitalist come and evaluate pt. states otherwise he has slept very well the past two nights. planning for wednesday discharge. still planning to go to [place] and work to save money to return. per staff, 7 lb weight gain since admission. pleasant, cooperative. med-compliant. slept well overnight until 0500. focused on peer as witch. Mental Status Exam Mental Status Exam Narrative: A&O. In street clothes, adequate grooming. fair eye contact, attentive. No Tics or Tremors. No abnormal involuntary movements. Calm, less guarded. non- pressured speech. No prolonged speech latency or dysarthria. affect is constricted and non-labile. no SI/HI/AVH expressed. Thoughts are organized and linear, without delusions or paranoia evident. No known cognitive or memory impairment. Insight/ Judgment impaired. Diagnostics Vital Signs (24Hr): Vital Signs - 24 hr 02/25/22 19:58 02/26/22 09:30 Temperature 98.3 F 98.2 F Pulse Rate 88 73 Respiratory Rate 14 18 Blood Pressure 126/88 107/72 Pulse Oximetry 98 100 Oxygen Delivery Method Room Air Room Air BMI result Body Mass Index 22.6 Labs Results: 02/09/22 01:39 02/09/22 01:39 Medications Medications Current Medications Acetaminophen (Acetaminophen 325 Mg Tablet) 650 mg PO Q6H PRN PRN Reason: Headache/Pain Mild Scale (1-3) Al Hydroxide/Mg Hydroxide (Magnesium Hydrox/Alum Hydrox 30 Ml Oral.Susp) 30 ml PO Q6H PRN PRN Reason: Heartburn/Nausea Benzocaine (Throat Lozenge, Medicated Lozenge) 1 lozenge MUCOUS MEM Q1H PRN PRN Reason: Sore Throat Last Admin: 02/25/22 06:40 Dose: 1 lozenge Clonidine HCl (Clonidine Hcl 0.1 Mg Tablet) 0.1 mg PO BID ELDER; Protocol Last Admin: 02/26/22 10:13 Dose: 0.1 mg Clonidine HCl (Clonidine Hcl 0.1 Mg Tablet) 0.1 mg PO DAILY PRN; Protocol PRN Reason: anxiety Hydroxyzine HCl (Hydroxyzine Hcl 25 Mg Tablet) 25 mg PO Q6H PRN PRN Reason: Anxiety Last Admin: 02/15/22 16:30 Dose: 25 mg [place] Carbonate ([place] Carbonate Er 300 Mg Tablet.Er) 600 mg PO BID ELDER Last Admin: 02/26/22 10:13 Dose: 600 mg Magnesium Hydroxide (Milk Of Magnesia 30 Ml Oral.Susp) 30 ml PO DAILY PRN PRN Reason: Constipation Melatonin (Melatonin 3 Mg Tablet) 3 mg PO BEDTIME PRN PRN Reason: insomnia Last Admin: 02/24/22 21:19 Dose: 3 mg Olanzapine (Olanzapine 10 Mg Tablet) 20 mg PO BEDTIME ELDER Last Admin: 02/25/22 20:04 Dose: 20 mg Psyllium Hydrophilic Mucilloid (Psyllium Seed 3.4 Gm Powd.Pack) 3.4 gm PO DAILY ELDER Last Admin: 02/26/22 10:12 Dose: 3.4 gm Trazodone HCl (Trazodone Hcl 50 Mg Tablet) 50 mg PO BEDTIME PRN PRN Reason: Insomnia Last Admin: 02/24/22 21:19 Dose: 50 mg Allergies Allergies Allergy/AdvReac Type Severity Reaction Status Date / Time No Known Allergies Allergy Verified 02/09/22 01:08 Assessment & Plan Assessment & Plan (1) Unspecified psychosis: Status: Acute Code(s): F29 - Unspecified psychosis not due to a substance or known physiological condition Plan Brian is a 26 y.o. Male who carries a dx of unspecified psychotic disorder. He self presented to [facility] on [facility] with his cousin due to increased anxiety and depression, bizarre behaviors, paranoia. Pt has been endorsing paranoid and restoration delusions. No past psych hx as an adult, remote hx of treatment for ADHD in childhood. Substance use positive for cannabis only, denies alcohol abuse. Family hx of schizophrenia. Plan: 02/09: Pt says ?I dont believe? in meds, I dont like to use pills.? Asks for chamomile tea, also accepting of PRN Melatonin. Consider head CT, as pt has unknown psych hx and is presenting with psychotic sx, denies any hx of trauma to his head. 02/10: discloses paranoid delusions. agrees to zyprexa at HS. reports polytrauma of the head. 02/11: paranoid. slept very well after zyprexa 10 last night, no complaints. continue current mgmt. 02/12: psychosis showing mild improvement. declines to increase zyprexa to 15 mg at HS. 02/13: Pt agreeable to trial of clonidine 0.1 mg TID PRN for hyperarousal, agitation, anxiety. He continues to decline increase in zyprexa. 02/14: No changes to plan, pt is paranoid, bizarre thought content but safe and refuses increase in zyprexa 02/15: pt trialed PRN clonidine for agitation, reports benefit 02/16: schedule clonidine 0.1 mg BID for agitation, anxiety, hyperarousal, inattention due to reported benefit on PRN dose 02/17: zyprexa dosing increased to 15 mg at HS. 02/18: continue current mgmt. increasing insight into mental illness which is causing sense of loss. 02/19: some bizarre ideation, mild disorganization. continue zyprexa 15 @HS, T/C dose increase soon. 02/20: remains delusional. increase zyprexa to 20 mg QHS. 02/21: no delusions expressed, c/o dry mouth. also racing thoughts persisting as well as insomnia (MNA). will R/O bipolar Disorder with lithium trial. started lithium 450 BID today. 02/22: lithium increased to 600 BID as of tonight. delusional re peer. 02/23: delusions and poor sleep continue. no change in medications. T/C increase in HS zyprexa back to 20 mg if does not sleep well again tonight. 02/24: remains delusional with interrupted sleep. zyprexa increased to 20 mg as of 02/24. 02/25 continue current medications. 02/26: no changes. check labs tomorrow morning. request eval of penile lesion. I spent ___25___ minutes with the patient and/or on the patient floor today, g reater than?50% of which was spent counseling/coordinating care. Reason for contiued inpatient stay Substantial Risk for: inability to function and rapid decompensation
[2022-02-26 20:17] VITALS: BP 170/69; PULSE 84; RESP 16; TEMP 36.8; O2SAT 98
[2022-02-26] MEDS: Melatonin 3 MG TABLET PO (21:14)
[2022-02-26] MEDS: OLANZapine 10 MG TABLET 20 MG PO (21:14)
[2022-02-27 06:00] VITALS: BP 135/74; PULSE 90; RESP 16; TEMP 36.8; O2SAT 98
[2022-02-27] MEDS: cloNIDine HCL 0.1 MG TABLET PO ×2 (08:36→20:41)
[2022-02-27] MEDS: Lithium Carbonate ER 300 MG TABLET.ER 600 MG PO (08:36)
[2022-02-27 08:44] LABS: MANUAL DIFF FLAG NO
[2022-02-27 08:51] LABS: Basophils Percent Auto 0.4 % (0-2); Eosinophils Absolute Auto 0.2 X10*3/uL (0.0-0.4); Hematocrit 41.7 % (42.0-52.0); Hemoglobin 13.8 g/dl (14.0-18.0); Imm Gran Abs Auto 0.04 X10*3/uL (0.00-0.03); Imm Gran Pct Auto 0.6 % (0.0-0.4); Lymphocytes Percent Auto 15.1 % (20-40); Mean Corpuscular HGB Conc 33.1 g/dl (31.0-36.0); Mean Corpuscular Hemoglobin 29.8 pg (27.0-33.0); Mean Corpuscular Volume 90.1 fL (80.0-98.0); Mean Platelet Volume 9.5 fL (9.4-12.4); Monocytes Absolute Auto 0.9 X10*3/uL (0.1-1.2); Monocytes Percent Auto 12.5 % (2-11); Neutrophils Absolute Auto 4.7 x10*3/uL (2.0-8.3); Neutrophils Percent Auto 68.4 % (45-73); Platelet Count 179 X10*3/uL (160-400); Red Blood Count 4.63 X10*6/uL (4.60-5.80); Red Cell Distribution Width 13.3 % (11.0-16.0); White Blood Count 6.9 X10*3/uL (4.8-10.8)
[2022-02-27 08:56] LABS: Lithium 0.58 mmol/L (0.60-1.20)
[2022-02-27 09:03] LABS: Anion Gap 9 (12-20); Blood Urea Nitrogen 21 mg/dL (9-16); Calcium 9.5 mg/dL (8.4-10.2); Carbon Dioxide 30 mmol/L (22-29); Chloride 103 mmol/L (96-108); Estimated Glomerular Filt Rate > 60; Glucose Random 67 mg/dL (60-115); Potassium 4.4 mmol/L (3.3-5.1); Sodium 138 mmol/L (135-145)
--- NOTE | 2022-02-27 13:36 | P.PNPSI_ITS ---
Subjective Subjective Date of Service: 02/27/22 Reason For Visit: disorganized thoughs, VH Interim History: preoccupied with concern for his genitals, the rash and lesion there. MD examined pt's genitalia with staff present in the room. pictures of genitals were sent to Dr. Hawkins of urology. pt agrees to increase lithium to 750 BID after level noted to be 0.58 this morning. per staff, low anxiety, good space yesterday. eating and sleeping well. Mental Status Exam Mental Status Exam Narrative: A&O. In street clothes, adequate grooming. fair eye contact, attentive. No Tics or Tremors. No abnormal involuntary movements. Calm, less guarded. non- pressured speech. No prolonged speech latency or dysarthria. affect is constricted and non-labile. no SI/HI/AVH expressed. Thoughts are organized and linear, without delusions or paranoia evident. No known cognitive or memory impairment. Insight/ Judgment impaired. Diagnostics Vital Signs (24Hr): Vital Signs - 24 hr 02/26/22 20:17 02/27/22 06:00 Temperature 98.3 F 98.3 F Pulse Rate 84 90 Respiratory Rate 16 16 Blood Pressure 170/69 H 135/74 Pulse Oximetry 98 98 Oxygen Delivery Method Room Air Room Air BMI result Body Mass Index 22.6 Labs Results: 02/27/22 08:33 02/27/22 08:33 Labs: Laboratory Results - last 48 hr 02/27/22 02/27/22 02/27/22 08:33 08:33 08:33 WBC 6.9 RBC 4.63 Hgb 13.8 L Hct 41.7 L MCV 90.1 MCH 29.8 MCHC 33.1 RDW 13.3 Plt Count 179 MPV 9.5 Immature Gran % (Auto) 0.6 H Neut % (Auto) 68.4 Lymph % (Auto) 15.1 L [place] % (Auto) 12.5 H Eos % (Auto) 3.0 Baso % (Auto) 0.4 Lymph # (Auto) 1.0 L [place] # (Auto) 0.9 Eos # (Auto) 0.2 Baso # (Auto) 0.0 Abs Immat Gran (auto) 0.04 H Absolute Neuts (auto) 4.7 Absolute Nucleated RBC 0.000 Nucleated RBC % (auto) 0.0 Sodium 138 Potassium 4.4 Chloride 103 Carbon Dioxide 30 H Anion Gap 9 L BUN 21 H Creatinine 0.88 Estim Creat Clear Calc 126.0 Estimated GFR > 60 Random Glucose 67 Calcium 9.5 [place] 0.58 L Medications Medications Current Medications Acetaminophen (Acetaminophen 325 Mg Tablet) 650 mg PO Q6H PRN PRN Reason: Headache/Pain Mild Scale (1-3) Al Hydroxide/Mg Hydroxide (Magnesium Hydrox/Alum Hydrox 30 Ml Oral.Susp) 30 ml PO Q6H PRN PRN Reason: Heartburn/Nausea Benzocaine (Throat Lozenge, Medicated Lozenge) 1 lozenge MUCOUS MEM Q1H PRN PRN Reason: Sore Throat Last Admin: 02/25/22 06:40 Dose: 1 lozenge Clonidine HCl (Clonidine Hcl 0.1 Mg Tablet) 0.1 mg PO BID ELDER; Protocol Last Admin: 02/27/22 08:36 Dose: 0.1 mg Clonidine HCl (Clonidine Hcl 0.1 Mg Tablet) 0.1 mg PO DAILY PRN; Protocol PRN Reason: anxiety Hydroxyzine HCl (Hydroxyzine Hcl 25 Mg Tablet) 25 mg PO Q6H PRN PRN Reason: Anxiety Last Admin: 02/15/22 16:30 Dose: 25 mg [place] Carbonate ([place] Carbonate Er 300 Mg Tablet.Er) 750 mg PO BID ELDER Magnesium Hydroxide (Milk Of Magnesia 30 Ml Oral.Susp) 30 ml PO DAILY PRN PRN Reason: Constipation Melatonin (Melatonin 3 Mg Tablet) 3 mg PO BEDTIME PRN PRN Reason: insomnia Last Admin: 02/26/22 21:14 Dose: 3 mg Olanzapine (Olanzapine 10 Mg Tablet) 20 mg PO BEDTIME ELDER Last Admin: 02/26/22 21:14 Dose: 20 mg Psyllium Hydrophilic Mucilloid (Psyllium Seed 3.4 Gm Powd.Pack) 3.4 gm PO DAILY ELDER Last Admin: 02/27/22 08:34 Dose: Not Given Trazodone HCl (Trazodone Hcl 50 Mg Tablet) 50 mg PO BEDTIME PRN PRN Reason: Insomnia Last Admin: 02/24/22 21:19 Dose: 50 mg Allergies Allergies Allergy/AdvReac Type Severity Reaction Status Date / Time No Known Allergies Allergy Verified 02/09/22 01:08 Assessment & Plan Assessment & Plan (1) Unspecified psychosis: Status: Acute Code(s): F29 - Unspecified psychosis not due to a substance or known physiological condition Plan Brian is a 26 y.o. Male who carries a dx of unspecified psychotic disorder. He self presented to [facility] on [address] with his cousin due to increased anxiety and depression, bizarre behaviors, paranoia. Pt has been endorsing paranoid and restorationism delusions. No past psych hx as an adult, remote hx of treatment for ADHD in childhood. Substance use positive for cannabis only, denies alcohol abuse. Family hx of schizophrenia. Plan: 02/09: Pt says ?I dont believe? in meds, I dont like to use pills.? Asks for chamomile tea, also accepting of PRN Melatonin. Consider head CT, as pt has unknown psych hx and is presenting with psychotic sx, denies any hx of trauma to his head. 02/10: discloses paranoid delusions. agrees to zyprexa at HS. reports polytrauma of the head. 02/11: paranoid. slept very well after zyprexa 10 last night, no complaints. continue current mgmt. 02/12: psychosis showing mild improvement. declines to increase zyprexa to 15 mg at HS. 02/13: Pt agreeable to trial of clonidine 0.1 mg TID PRN for hyperarousal, agitation, anxiety. He continues to decline increase in zyprexa. 02/14: No changes to plan, pt is paranoid, bizarre thought content but safe and refuses increase in zyprexa 02/15: pt trialed PRN clonidine for agitation, reports benefit 02/16: schedule clonidine 0.1 mg BID for agitation, anxiety, hyperarousal, inattention due to reported benefit on PRN dose 02/17: zyprexa dosing increased to 15 mg at HS. 02/18: continue current mgmt. increasing insight into mental illness which is causing sense of loss. 02/19: some bizarre ideation, mild disorganization. continue zyprexa 15 @HS, T/C dose increase soon. 02/20: remains delusional. increase zyprexa to 20 mg QHS. 02/21: no delusions expressed, c/o dry mouth. also racing thoughts persisting as well as insomnia (MNA). will R/O bipolar Disorder with lithium trial. started lithium 450 BID today. 02/22: lithium increased to 600 BID as of tonight. delusional re peer. 02/23: delusions and poor sleep continue. no change in medications. T/C inc rease in HS zyprexa back to 20 mg if does not sleep well again tonight. 02/24: remains delusional with interrupted sleep. zyprexa increased to 20 mg as of 02/24. 02/25 continue current medications. 02/26: no changes. check labs tomorrow morning. request eval of penile lesion. 02/27: lithium 0.58, renal fxn adequate but continue to monitor. per Dr. Hawkins, likely Dx excoriation, planning to Rx a cream to help. lesions are not HSV. I spent ___45___ minutes with the patient and/or on the patient floor today, greater than?50% of which was spent counseling/coordinating care. Reason for contiued inpatient stay Substantial Risk for: inability to function and rapid decompensation
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
[2022-02-27 18:00] VITALS: BP 135/73; PULSE 93; TEMP 37.1; O2SAT 98
[2022-02-27] MEDS: OLANZapine 10 MG TABLET 20 MG PO (20:39)
[2022-02-27] MEDS: Lithium Carbonate ER 300 MG TABLET.ER 750 MG PO (20:40)
[2022-02-28 07:55] VITALS: BP 140/79; PULSE 77; RESP 16; TEMP 36.7; O2SAT 99
[2022-02-28] MEDS: Lithium Carbonate ER 300 MG TABLET.ER 750 MG PO (08:12)
[2022-02-28] MEDS: cloNIDine HCL 0.1 MG TABLET PO ×2 (08:14→20:44)
[2022-02-28] MEDS: Throat Lozenge, Medicated LOZENGE 1 LOZENGE MUCOUS MEM (12:32)
--- NOTE | 2022-02-28 15:33 | HO.PSYCHPN ---
Subjective Subjective Date of Service: 02/28/22 Reason For Visit: disorganized thoughs, VH Subjective Notes: Conditional Voluntary Healthcare Proxy: No Guardianship: No Medical Problems Affecting Mental Status: No Interim History: co diarrhea this afternoon just went up to 750mg bid from 600mg bid er will change to ir He reports doing ok - slept last pm but not night before anxious about leaving and going to [place] next week - mentioning his not being able to finish his ensure- reports having last weight due to not working out Medication Compliance: Yes Side effects from medications: Yes (possible diarrhea) Attending Groups: Intermittent Review of Systems Acute medical concerns: Yes will check lihtium lvl and change to ir lithium Review of Systems: see above diarrhea no urinary complaints Review of Systems Review of Systems diarrhea Mental Status Exam Mental Status Exam Patient Appearance: Well Grooomed and Appropriate Patient Orientation: Person, Place, Time and Situation Level of Consciousness: Awake Patient Behavior: Appropriate Mood Description: Calm Affect Description: Calm Patient Cognition Impaired: No Ability to Follow Directions: Good Speech Pattern: Clear Memory Description: Intact Hallucinations: None Delusions: Not Present Thought Process: Intact and Goal Oriented Thought Content: positive for Intact Depressive Symptoms: Increased Anxiety Judgement: Fair Diagnostics Vital Signs (24Hr): Vital Signs - 24 hr 02/27/22 18:00 02/28/22 07:55 Temperature 98.7 F 98.1 F Pulse Rate 93 77 Respiratory Rate 16 Blood Pressure 135/73 140/79 H Pulse Oximetry 98 99 Oxygen Delivery Method Room Air Room Air BMI result Body Mass Index 22.6 Labs Results: 02/27/22 08:33 02/27/22 08:33 Labs: Laboratory Results - last 48 hr 02/27/22 02/27/22 02/27/22 08:33 08:33 08:33 WBC 6.9 RBC 4.63 Hgb 13.8 L Hct 41.7 L MCV 90.1 MCH 29.8 MCHC 33.1 RDW 13.3 Plt Count 179 MPV 9.5 Immature Gran % (Auto) 0.6 H Neut % (Auto) 68.4 Lymph % (Auto) 15.1 L [place] % (Auto) 12.5 H Eos % (Auto) 3.0 Baso % (Auto) 0.4 Lymph # (Auto) 1.0 L [place] # (Auto) 0.9 Eos # (Auto) 0.2 Baso # (Auto) 0.0 Abs Immat Gran (auto) 0.04 H Absolute Neuts (auto) 4.7 Absolute Nucleated RBC 0.000 Nucleated RBC % (auto) 0.0 Sodium 138 Potassium 4.4 Chloride 103 Carbon Dioxide 30 H Anion Gap 9 L BUN 21 H Creatinine 0.88 Estim Creat Clear Calc 126.0 Estimated GFR > 60 Random Glucose 67 Calcium 9.5 [place] 0.58 L Medications Medications Current Medications Acetaminophen (Acetaminophen 325 Mg Tablet) 650 mg PO Q6H PRN PRN Reason: Headache/Pain Mild Scale (1-3) Al Hydroxide/Mg Hydroxide (Magnesium Hydrox/Alum Hydrox 30 Ml Oral.Susp) 30 ml PO Q6H PRN PRN Reason: Heartburn/Nausea Benzocaine (Throat Lozenge, Medicated Lozenge) 1 lozenge MUCOUS MEM Q1H PRN PRN Reason: Sore Throat Last Admin: 02/28/22 12:32 Dose: 1 lozenge Betamethasone Dipropion Augmented (Betamethasone Dip Aug 0.05% Cr 15 Gm Tube) 1 appl TOPICAL BID ELDER; Protocol Last Admin: 02/28/22 08:20 Dose: Not Given Clonidine HCl (Clonidine Hcl 0.1 Mg Tablet) 0.1 mg PO BID ELDER; Protocol Last Admin: 02/28/22 08:14 Dose: 0.1 mg Clonidine HCl (Clonidine Hcl 0.1 Mg Tablet) 0.1 mg PO DAILY PRN; Protocol PRN Reason: anxiety Hydroxyzine HCl (Hydroxyzine Hcl 25 Mg Tablet) 25 mg PO Q6H PRN PRN Reason: Anxiety Last Admin: 02/15/22 16:30 Dose: 25 mg [place] Carbonate ([place] Carbonate Er 300 Mg Tablet.Er) 750 mg PO BID ELDER Last Admin: 02/28/22 08:12 Dose: 750 mg Magnesium Hydroxide (Milk Of Magnesia 30 Ml Oral.Susp) 30 ml PO DAILY PRN PRN Reason: Constipation Melatonin (Melatonin 3 Mg Tablet) 3 mg PO BEDTIME PRN PRN Reason: insomnia Last Admin: 02/26/22 21:14 Dose: 3 mg Olanzapine (Olanzapine 10 Mg Tablet) 20 mg PO BEDTIME ELDER Last Admin: 02/27/22 20:39 Dose: 20 mg Psyllium Hydrophilic Mucilloid (Psyllium Seed 3.4 Gm Powd.Pack) 3.4 gm PO DAILY ELDER Last Admin: 02/28/22 08:20 Dose: Not Given Trazodone HCl (Trazodone Hcl 50 Mg Tablet) 50 mg PO BEDTIME PRN PRN Reason: Insomnia Last Admin: 02/24/22 21:19 Dose: 50 mg Allergies Allergies Allergy/AdvReac Type Severity Reaction Status Date / Time No Known Allergies Allergy Verified 02/09/22 01:08 Assessment & Plan Assessment & Plan (1) Unspecified psychosis: Status: Acute Code(s): F29 - Unspecified psychosis not due to a substance or known physiological condition Assessment and Plan: seesm better on lithium and zyprexa s/e of diarrhea? with inc dose from 600 bid to 750mg bid will recheck li lvl tomorrow Plan Treatment as described above I spent minutes with the patient and/or on the patient floor today, greater than?50% of which was spent counseling/coordinating care. Reason for contiued inpatient stay Substantial Risk for: rapid decompensation
[2022-02-28] MEDS: Melatonin 3 MG TABLET PO (20:44)
[2022-02-28] MEDS: Lithium Carbonate 300 MG TABLET 750 MG PO (20:44)
[2022-02-28] MEDS: OLANZapine 10 MG TABLET 20 MG PO (20:44)
[2022-02-28 20:46] VITALS: BP 139/92; PULSE 95; RESP 17; TEMP 37; O2SAT 97
[2022-03-01 06:00] VITALS: BP 125/76; PULSE 70; RESP 16; TEMP 36.1; O2SAT 98
[2022-03-01 08:25] LABS: Lithium 0.56 mmol/L (0.60-1.20)
[2022-03-01] MEDS: cloNIDine HCL 0.1 MG TABLET PO ×2 (08:25→20:41)
[2022-03-01] MEDS: Lithium Carbonate 300 MG TABLET 750 MG PO ×2 (08:26→20:42)
--- NOTE | 2022-03-01 09:52 | P.PNPSI_ITS ---
Subjective Subjective Date of Service: 03/01/22 Reason For Visit: disorganized thoughs, VH Subjective Notes: 3 Day Healthcare Proxy: No Guardianship: No Medical Problems Affecting Mental Status: No Interim History: less depressed, inc bms- thinks might be ensure or dairy related brighter more pleasant some suspiciousness- while asleep and nursing in room didn't want someone practicing witchcraft on him Told this provider today his mind was a weapon proceeded to discuss as instrument/creative tool/ Medication Compliance: Yes Side effects from medications: No (lithium could cause diarrhea but lvl is still .56) Attending Groups: Intermittent Review of Systems ?diarrhea Medical Review of Systems: unchanged Mental Status Exam Mental Status Exam Narrative: lying in bed, napping,with hoody up - looked at provider- then startled Dominga! awake - Patient Appearance: Appropriate Patient Orientation: Person, Place, Time and Situation Level of Consciousness: Drowsy Patient Behavior: Anxious and Impulsive Mood Description: Calm Affect Description: Blunted Patient Cognition Impaired: No Ability to Follow Directions: Fair Speech Pattern: Clear Thought Process: Distracted Thought Content: positive for Flight of Ideas Abnormal Motor Activity Signs and Symptoms: Restlessness Judgement: Fair Diagnostics Vital Signs (24Hr): Vital Signs - 24 hr 02/28/22 20:46 03/01/22 06:00 Temperature 98.6 F 97 F Pulse Rate 95 70 Respiratory Rate 17 16 Blood Pressure 139/92 H 125/76 Pulse Oximetry 97 98 Oxygen Delivery Method Room Air Room Air BMI result Body Mass Index 22.6 Labs Results: 02/27/22 08:33 02/27/22 08:33 Labs: Laboratory Results - last 48 hr 03/01/22 07:47 [place] 0.56 L Medications Medications Current Medications Acetaminophen (Acetaminophen 325 Mg Tablet) 650 mg PO Q6H PRN PRN Reason: Headache/Pain Mild Scale (1-3) Al Hydroxide/Mg Hydroxide (Magnesium Hydrox/Alum Hydrox 30 Ml Oral.Susp) 30 ml PO Q6H PRN PRN Reason: Heartburn/Nausea Benzocaine (Throat Lozenge, Medicated Lozenge) 1 lozenge MUCOUS MEM Q1H PRN PRN Reason: Sore Throat Last Admin: 02/28/22 12:32 Dose: 1 lozenge Betamethasone Dipropion Augmented (Betamethasone Dip Aug 0.05% Cr 15 Gm Tube) 1 appl TOPICAL BID ELDER; Protocol Last Admin: 02/28/22 20:45 Dose: Not Given Clonidine HCl (Clonidine Hcl 0.1 Mg Tablet) 0.1 mg PO BID ELDER; Protocol Last Admin: 03/01/22 08:25 Dose: 0.1 mg Clonidine HCl (Clonidine Hcl 0.1 Mg Tablet) 0.1 mg PO DAILY PRN; Protocol PRN Reason: anxiety Hydroxyzine HCl (Hydroxyzine Hcl 50 Mg Tablet) 50 mg PO Q6H PRN PRN Reason: Anxiety [place] Carbonate ([place] Carbonate 300 Mg Tablet) 750 mg PO BID [facility] Last Admin: 03/01/22 08:26 Dose: 750 mg Magnesium Hydroxide (Milk Of Magnesia 30 Ml Oral.Susp) 30 ml PO DAILY PRN PRN Reason: Constipation Melatonin (Melatonin 3 Mg Tablet) 3 mg PO BEDTIME PRN PRN Reason: insomnia Last Admin: 02/28/22 20:44 Dose: 3 mg Olanzapine (Olanzapine 10 Mg Tablet) 20 mg PO BEDTIME ELDER Last Admin: 02/28/22 20:44 Dose: 20 mg Psyllium Hydrophilic Mucilloid (Psyllium Seed 3.4 Gm Powd.Pack) 3.4 gm PO DAILY [facility] Last Admin: 02/28/22 08:20 Dose: Not Given Allergies Allergies Allergy/AdvReac Type Severity Reaction Status Date / Time No Known Allergies Allergy Verified 02/09/22 01:08 Assessment & Plan Assessment & Plan (1) Unspecified psychosis: Status: Acute Code(s): F29 - Unspecified psychosis not due to a substance or known physiological condition Assessment and Plan: seesm better on lithium and zyprexa s/e of diarrhea? with inc dose from 600 bid to 750mg bid will recheck li lvl tomorrow 03/01 level not much different having some diarrhea ? se or lactose intolerance Plan Treatment as described above I spent minutes with the patient and/or on the patient floor today, greater than?50% of which was spent counseling/coordinating care. Patient educated on: medication risk/benefits Informed Consent: understands Reason for contiued inpatient stay Substantial Risk for: rapid decompensation
[2022-03-01] MEDS: Betamethasone Dip Aug 0.05% Cr 15 GM TUBE 1 APPL TOPICAL (10:25)
[2022-03-01 20:33] VITALS: BP 134/84; PULSE 94; RESP 18; TEMP 36.7; O2SAT 96
[2022-03-01] MEDS: OLANZapine 10 MG TABLET 20 MG PO (20:41)
[2022-03-01] MEDS: Melatonin 3 MG TABLET PO (20:41)
[2022-03-02 06:00] VITALS: BP 125/65; PULSE 75; RESP 16; TEMP 36.8; O2SAT 100
[2022-03-02] MEDS: cloNIDine HCL 0.1 MG TABLET PO ×2 (08:01→21:41)
[2022-03-02] MEDS: Lithium Carbonate 300 MG TABLET 750 MG PO ×2 (08:01→21:40)
[2022-03-02] MEDS: Betamethasone Dip Aug 0.05% Cr 15 GM TUBE 1 APPL TOPICAL (08:02)
--- NOTE | 2022-03-02 11:14 | MHC.CLN ---
F/U CONTINUES WITH FAVORABLE WEIGHT GAIN SINCE ADMISSION. BMI=22.6. PATIENT ASKED [facility] TO DISCONTINUE ENSURE SUPPLEMENT. REPORTED CONCERNS WITH BMs. DIET=REGULAR. ENSURE SUPPLEMENT DISCONTINUED. RD TO FOLLOW WEEKLY.
--- NOTE | 2022-03-02 13:05 | P.PNPSI_ITS ---
Subjective Subjective Date of Service: 03/02/22 Reason For Visit: disorganized thoughs, VH Interim History: pt calm and cooperative today. reports his mood is stable and even, feeling well. sleeping at night. educated re lithium, need to stay hydrated re kidneys and also to stay away from ibuprofen and naproxen and to use tylenol and ASA. discharging asking questions about discharge details - needs duffel bag, may need to leave early to get his SS card and cert. states, zero for stress, depression, anxiety. feels his genital rash/lesions are improving. per staff, pleasant. denies dep/anx. hyper-alevism. talking about witchcraft this weekend, declined to take candy gift from peer bcse he perceives her as a witch. diarrhea. Mental Status Exam Mental Status Exam Narrative: A&O. In street clothes, adequate grooming. good eye contact, attentive. No Tics or Tremors. No abnormal involuntary movements. Calm, less guarded. non- pressured speech. No prolonged speech latency or dysarthria. mood not depressed or anxious. affect is moderately flexible and non-labile. no SI/HI/AVH expressed. Thoughts are organized and linear, without delusions or paranoia evident. No known cognitive or memory impairment. Insight/ Judgment improving. Diagnostics Vital Signs (24Hr): Vital Signs - 24 hr 03/01/22 20:33 03/02/22 06:00 Temperature 98.1 F 98.2 F Pulse Rate 94 75 Respiratory Rate 18 16 Blood Pressure 134/84 125/65 Pulse Oximetry 96 100 Oxygen Delivery Method Room Air Room Air BMI result Body Mass Index 22.6 Labs Results: 02/27/22 08:33 02/27/22 08:33 Labs: Laboratory Results - last 48 hr 03/01/22 07:47 [place] 0.56 L Medications Medications Current Medications Acetaminophen (Acetaminophen 325 Mg Tablet) 650 mg PO Q6H PRN PRN Reason: Headache/Pain Mild Scale (1-3) Al Hydroxide/Mg Hydroxide (Magnesium Hydrox/Alum Hydrox 30 Ml Oral.Susp) 30 ml PO Q6H PRN PRN Reason: Heartburn/Nausea Benzocaine (Throat Lozenge, Medicated Lozenge) 1 lozenge MUCOUS MEM Q1H PRN PRN Reason: Sore Throat Last Admin: 07/16/22 12:32 Dose: 1 lozenge Betamethasone Dipropion Augmented (Betamethasone Dip Aug 0.05% Cr 15 Gm Tube) 1 appl TOPICAL BID ELDER; Protocol Last Admin: 03/02/22 08:02 Dose: 1 appl Clonidine HCl (Clonidine Hcl 0.1 Mg Tablet) 0.1 mg PO BID ELDER; Protocol Last Admin: 03/02/22 08:01 Dose: 0.1 mg Clonidine HCl (Clonidine Hcl 0.1 Mg Tablet) 0.1 mg PO DAILY PRN; Protocol PRN Reason: anxiety Hydroxyzine HCl (Hydroxyzine Hcl 50 Mg Tablet) 50 mg PO Q6H PRN PRN Reason: Anxiety [place] Carbonate ([place] Carbonate 300 Mg Tablet) 750 mg PO BID ELDER Last Admin: 03/02/22 08:01 Dose: 750 mg Magnesium Hydroxide (Milk Of Magnesia 30 Ml Oral.Susp) 30 ml PO DAILY PRN PRN Reason: Constipation Melatonin (Melatonin 3 Mg Tablet) 3 mg PO BEDTIME PRN PRN Reason: insomnia Last Admin: 03/01/22 20:41 Dose: 3 mg Olanzapine (Olanzapine 10 Mg Tablet) 20 mg PO BEDTIME ELDER Last Admin: 03/01/22 20:41 Dose: 20 mg Psyllium Hydrophilic Mucilloid (Psyllium Seed 3.4 Gm Powd.Pack) 3.4 gm PO DAILY ELDER Last Admin: 03/02/22 08:15 Dose: Not Given Allergies Allergies Allergy/AdvReac Type Severity Reaction Status Date / Time No Known Allergies Allergy Verified 02/09/22 01:08 Assessment & Plan Assessment & Plan (1) Unspecified psychosis: Status: Acute Code(s): F29 - Unspecified psychosis not due to a substance or known physiological condi tion Plan Brian is a 26 y.o. Male who carries a dx of unspecified psychotic disorder. He self presented to [facility] on [address] with his cousin due to increased anxiety and depression, bizarre behaviors, paranoia. Pt has been endorsing paranoid and alevism delusions. No past psych hx as an adult, remote hx of treatment for ADHD in childhood. Substance use positive for cannabis only, denies alcohol abuse. Family hx of schizophrenia. Plan: 02/09: Pt says ?I dont believe? in meds, I dont like to use pills.? Asks for chamomile tea, also accepting of PRN Melatonin. Consider head CT, as pt has unknown psych hx and is presenting with psychotic sx, denies any hx of trauma to his head. 02/10: discloses paranoid delusions.? agrees to zyprexa at HS.? reports polytrauma of the head. 02/11: paranoid.? slept very well after zyprexa 10 last night, no complaints.? continue current mgmt. 02/12: psychosis showing mild improvement.? declines to increase zyprexa to 15 mg at HS. 02/13: Pt agreeable to trial of clonidine 0.1 mg TID PRN for hyperarousal, agitation, anxiety. He continues to decline increase in zyprexa. 02/14: No changes to plan, pt is paranoid, bizarre thought content but safe and refuses increase in zyprexa 02/15: pt trialed PRN clonidine for agitation, reports benefit 02/16: schedule clonidine 0.1 mg BID for agitation, anxiety, hyperarousal, inatte ntion due to reported benefit on PRN dose 02/17: zyprexa dosing increased to 15 mg at HS. 02/18: continue current mgmt.? increasing insight into mental illness which is causing sense of loss. 02/19: some bizarre ideation, mild disorganization.? continue zyprexa 15 @HS, T/C dose increase soon. 02/20: remains delusional.? increase zyprexa to 20 mg QHS. 02/21: no delusions expressed, c/o dry mouth.? also racing thoughts persisting as well as insomnia (MNA).? will R/O bipolar Disorder with lithium trial.? started lithium 450 BID today. 02/22: lithium increased to 600 BID as of tonight.? delusional re peer. 02/23: delusions and poor sleep continue.? no change in medications.? T/C increase in HS zyprexa back to 20 mg if does not sleep well again tonight. 02/24: remains delusional with interrupted sleep.? zyprexa increased to 20 mg as of 02/24. 02/25 continue current medications. 02/26: no changes.? check labs tomorrow morning.? request eval of penile lesion. 02/27: lithium 0.58, renal fxn adequate but continue to monitor.? per Dr. Hawkins, likely Dx excoriation, planning to Rx a cream to help.? lesions are not HSV. 02/28: seems better on lithium and zyprexa. s/e of diarrhea? with inc dose from 600 bid to 750mg bid. will recheck li lvl tomorrow. 03/01: level not much different having some diarrhea ? se or lactose intolerance 03/02: no complaints, no clear psychotic content. continue current mgmt. disch arge . I spent ___25___ minutes with the patient and/or on the patient floor today, greater than?50% of which was spent counseling/coordinating care. Reason for contiued inpatient stay Substantial Risk for: inability to function and rapid decompensation
[2022-03-02 21:35] VITALS: BP 157/82; PULSE 83; RESP 16; TEMP 36.8; O2SAT 98
[2022-03-02] MEDS: OLANZapine 10 MG TABLET 20 MG PO (21:40)
[2022-03-02] MEDS: Melatonin 3 MG TABLET PO (21:41)
[2022-03-03] MEDS: cloNIDine HCL 0.1 MG TABLET PO (08:52)
[2022-03-03] MEDS: Lithium Carbonate 300 MG TABLET 750 MG PO ×2 (08:52→20:34)
[2022-03-03] MEDS: Betamethasone Dip Aug 0.05% Cr 15 GM TUBE 1 APPL TOPICAL (08:58)
[2022-03-03 09:00] VITALS: BP 122/79; PULSE 84; RESP 16; TEMP 36.9; O2SAT 96
--- NOTE | 2022-03-03 15:25 | HO.PSYCHPN ---
Subjective Subjective Date of Service: 03/03/22 Reason For Visit: disorganized thoughs, VH Interim History: calm, cooperative. upset today at details he needs to take care of to fly to [place] on and impediments to his taking care of said details. calms somewhat by end of interview. no diarrhea today, scrotum itchy. anger 3, anxiety 6. no change in regimen. per staff, religiously preoccupied, sleeping better. no anx/dep. no SI/HI/AVH. PRN melatonin. slept well. D/C at 0900. Mental Status Exam Mental Status Exam Narrative: A&O. In street clothes, adequate grooming. good eye contact, attentive. No Tics or Tremors. No abnormal involuntary movements. Calm. non-pressured speech. No prolonged speech latency or dysarthria. mood largely anxious about discharge. affect is moderately flexible and min-labile. no SI/HI/AVH expressed. Thoughts are organized and linear, without delusions or paranoia evident. No known cognitive or memory impairment. Insight/ Judgment improving. Diagnostics Vital Signs (24Hr): Vital Signs - 24 hr 03/02/22 21:35 03/03/22 09:00 Temperature 98.2 F 98.5 F Pulse Rate 83 84 Respiratory Rate 16 16 Blood Pressure 157/82 H 122/79 Pulse Oximetry 98 96 Oxygen Delivery Method Room Air Room Air BMI result Body Mass Index 22.6 Labs Results: 02/27/22 08:33 02/27/22 08:33 Medications Medications Current Medications Acetaminophen (Acetaminophen 325 Mg Tablet) 650 mg PO Q6H PRN PRN Reason: Headache/Pain Mild Scale (1-3) Al Hydroxide/Mg Hydroxide (Magnesium Hydrox/Alum Hydrox 30 Ml Oral.Susp) 30 ml PO Q6H PRN PRN Reason: Heartburn/Nausea Benzocaine (Throat Lozenge, Medicated Lozenge) 1 lozenge MUCOUS MEM Q1H PRN PRN Reason: Sore Throat Last Admin: 02/28/22 12:32 Dose: 1 lozenge Betamethasone Dipropion Augmented (Betamethasone Dip Aug 0.05% Cr 15 Gm Tube) 1 appl TOPICAL BID ELDER; Protocol Last Admin: 03/03/22 08:58 Dose: 1 appl Clonidine HCl (Clonidine Hcl 0.1 Mg Tablet) 0.1 mg PO BID ELDER; Protocol Last Admin: 03/03/22 08:52 Dose: 0.1 mg Clonidine HCl (Clonidine Hcl 0.1 Mg Tablet) 0.1 mg PO DAILY PRN; Protocol PRN Reason: anxiety Hydroxyzine HCl (Hydroxyzine Hcl 50 Mg Tablet) 50 mg PO Q6H PRN PRN Reason: Anxiety [place] Carbonate ([place] Carbonate 300 Mg Tablet) 750 mg PO BID ELDER Last Admin: 03/03/22 08:52 Dose: 750 mg Magnesium Hydroxide (Milk Of Magnesia 30 Ml Oral.Susp) 30 ml PO DAILY PRN PRN Reason: Constipation Melatonin (Melatonin 3 Mg Tablet) 3 mg PO BEDTIME PRN PRN Reason: insomnia Last Admin: 03/02/22 21:41 Dose: 3 mg Olanzapine (Olanzapine 10 Mg Tablet) 20 mg PO BEDTIME ELDER Last Admin: 03/02/22 21:40 Dose: 20 mg Psyllium Hydrophilic Mucilloid (Psyllium Seed 3.4 Gm Powd.Pack) 3.4 gm PO DAILY [facility] Last Admin: 03/03/22 10:15 Dose: Not Given Allergies Allergies Allergy/AdvReac Type Severity Reaction Status Date / Time No Known Allergies Allergy Verified 02/09/22 01:08 Assessment & Plan Assessment & Plan (1) Unspecified psychosis: Status: Acute Code(s): F29 - Unspecified psychosis not due to a substance or known physiological condition Plan Brian is a 26 y.o. Male who carries a dx of unspecified psychotic disorder. He self presented to [facility] on [address] with his cousin due to increased anxiety and depression, bizarre behaviors, paranoia. Pt has been endorsing paranoid and buddhism delusions. No past psych hx as an adult, remote hx of treatment for ADHD in childhood. Substance use positive for cannabis only, denies alcohol abuse. Family hx of schizophrenia. Plan: 02/09: Pt says ?I dont believe? in meds, I dont like to use pills.? Asks for chamomile tea, also accepting of PRN Melatonin. Consider head CT, as pt has unknown psych hx and is presenting with psychotic sx, denies any hx of trauma to his head. 02/10: discloses paranoid delusions.? agrees to zyprexa at HS.? reports polytrauma of the head. 02/11: paranoid.? slept very well after zyprexa 10 last night, no complaints.? continue current mgmt. 02/12: psychosis showing mild improvement.? declines to increase zyprexa to 15 mg at HS. 02/13: Pt agreeable to trial of clonidine 0.1 mg TID PRN for hyperarousal, agitation, anxiety. He continues to decline increase in zyprexa. 02/14: No changes to plan, pt is paranoid, bizarre thought content but safe and refuses increase in zyprexa 02/15: pt trialed PRN clonidine for agitation, reports benefit 02/16: schedule clonidine 0.1 mg BID for agitation, anxiety, hyperarousal, inattention due to reported benefit on PRN dose 02/17: zyprexa dosing increased to 15 mg at HS. 02/18: continue current mgmt.? increasing insight into mental illness which is causing sense of loss. 02/19: some bizarre ideation, mild disorganization.? continue zyprexa 15 @HS, T/C dose increase soon. 02/20: remains delusional.? increase zyprexa to 20 mg QHS. 02/21: no delusions expressed, c/o dry mouth.? also racing thoughts persisting as well as insomnia (MNA).? will R/O bipolar Disorder with lithium trial.? started lithium 450 BID today. 02/22: lithium increased to 600 BID as of tonight.? delusional re peer. 02/23: delusions and poor sleep continue.? no change in medications.? T/C increase in HS zyprexa back to 20 mg if does not sleep well again tonight. 02/24: remains delusional with interrupted sleep.? zyprexa increased to 20 mg as of 02/24. 02/25 continue current medications. 02/26: no changes.? check labs tomorrow morning.? request eval of penile lesion. 02/27: lithium 0.58, renal fxn adequate but continue to monitor.? per Dr. Hawkins, likely Dx excoriation, planning to Rx a cream to help.? lesions are not HSV. 02/28: seems better on lithium and zyprexa. s/e of diarrhea? with inc dose from 600 bid to 750mg bid. will recheck li lvl tomorrow. 03/01: level not much different having some diarrhea ? se or lactose intolerance 03/02: no complaints, no clear psychotic content. continue current mgmt. discharge . 03/03: preparing for discharge. no changes. check labs tomorrow morning. discharge at 0900. I spent ___25___ minutes with the patient and/or on the patient floor today, greater than?50% of which was spent counseling/coordinating care. Reason for contiued inpatient stay Substantial Risk for: rapid decompensation
[2022-03-03 18:00] VITALS: BP 130/78; PULSE 100; TEMP 36.6; O2SAT 96
[2022-03-03] MEDS: cloNIDine HCL 0.1 MG TABLET 0.05 MG PO (20:33)
[2022-03-03] MEDS: OLANZapine 10 MG TABLET 20 MG PO (20:34)
[2022-03-04] MEDS: Betamethasone Dip Aug 0.05% Cr 15 GM TUBE 1 APPL TOPICAL ×2 (08:05→21:13)
[2022-03-04] MEDS: Lithium Carbonate 300 MG TABLET 750 MG PO ×2 (08:06→21:10)
[2022-03-04] MEDS: cloNIDine HCL 0.1 MG TABLET 0.05 MG PO ×2 (08:07→21:10)
[2022-03-04 09:00] VITALS: BP 136/64; PULSE 77; RESP 16; TEMP 37.1; O2SAT 100
[2022-03-04 09:35] LABS: Lithium 0.63 mmol/L (0.60-1.20)
[2022-03-04 09:45] LABS: Anion Gap 9 (12-20); Blood Urea Nitrogen 16 mg/dL (9-16); Calcium 9.4 mg/dL (8.4-10.2); Carbon Dioxide 30 mmol/L (22-29); Chloride 105 mmol/L (96-108); Creatinine Clr Calc Pharmacy 124.6; Estimated Glomerular Filt Rate > 60; Glucose Random 52 mg/dL (60-115); Potassium 4.1 mmol/L (3.3-5.1); Sodium 140 mmol/L (135-145)
[2022-03-04 10:02] LABS: Glucose, Whole Blood 92 mg/dL (60-115)
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
[2022-03-04 21:10] VITALS: BP 146/86; PULSE 91; RESP 14; TEMP 36.6; O2SAT 96
[2022-03-04] MEDS: OLANZapine 10 MG TABLET 20 MG PO (21:12)
[2022-03-05 08:52] VITALS: BP 134/78; PULSE 73; TEMP 36.8; O2SAT 98
[2022-03-05] MEDS: Lithium Carbonate 300 MG TABLET 750 MG PO (09:05)
[2022-03-05] MEDS: cloNIDine HCL 0.1 MG TABLET 0.05 MG PO (09:06)
[2022-03-05] MEDS: Betamethasone Dip Aug 0.05% Cr 15 GM TUBE 1 APPL TOPICAL (09:09)
== END 2022-03-05 09:50 | disposition home or self-care (01) | DRG 753 ==
LOC: HO.ED 07:23 → HO.PADLT16 18:17
PROVIDERS: Internal Medicine; Psychiatry & Neurology Psychiatry; Registered Nurse; Admitting Provider Psychiatry & Neurology Psychiatry; Emergency Provider Emergency Medicine Emergency Medical Services; Visit Provider Psychiatry & Neurology Psychiatry
DX: F31.2 Bipolar disorder, current episode manic severe with psychotic features (principal); F41.9 Anxiety disorder, unspecified; L28.0 Lichen simplex chronicus; Z20.822 Contact with and (suspected) exposure to COVID-19; Z79.899 Other long term (current) drug therapy
CPT/HCPCS: 36415; 80048; 80061; 80143; 80178; 80179; 80307; 82077; 82607; 82746; 82947; 83036; 83735; 84439; 84443; 85025; 86695; 86696; 86780; 87389; 87491; 87591; 87635; 93005; 99285